=== PATIENT | female | born 1940 | race Caucasian/White ===

== ENCOUNTER → 2017-09-15 | Outpatient (CLI) | payer MEDICARE, OTHER ==
[~2017-09-15] MED LIST: ADVA500A INH; AZIT250T3 PO; BENA25TA3 PO; CALC1TAB PO; DILT1TAB8 PO; DIPH25CA PO; META0.52 PO; OMEP20TA93 PO; RANI150C PO; REST0.05 EACH EYE; SYSTSOL9 EACH EYE
--- NOTE | 2017-09-19 10:20 | RSPPFT ---
DATE OF PROCEDURE: 09/15/17 COMMENTS: VOLUMES DYNAMIC: FVC and FEV1 moderately reduced. STATIC: TLC and FRC mildly reduced; RV normal. FLOWS: FEV1% normal; FEF 25-75 moderately reduced. DIFFUSION: Moderately reduced. FLOW VOLUME LOOP: Restrictive configuration with terminal airflow obstruction. IMPRESSION: Combined moderate obstructive and mild restrictive ventilatory defect with a moderate reduction in diffusion and no improvement post-bronchodilator.
== END ==
LOC: HRSP 08:54
PROVIDERS: ATTEND Internal Medicine
DX: J45.909 Unspecified asthma, uncomplicated (principal)
CPT/HCPCS: 94060; 94620; 94726; 94729; 95012

== ENCOUNTER 2017-09-19 11:14 | Emergency (ER) | payer MEDICARE, OTHER ==
[~2017-09-19] VITALS: Ht 162.6 cm; Wt 80.0 kg
[~2017-09-19 11:14] MED LIST changes: -AZIT250T3 PO; -DIPH25CA PO
[2017-09-19 11:16] VITALS: BP 146/79; PULSE 101; RESP 19; TEMP 101.5; O2SAT 91
[2017-09-19 12:16] VITALS: BP 170/79; PULSE 93; RESP 24; TEMP 99.6; O2SAT 95
[2017-09-19] MEDS ORDERED: DIPH25CA PO (12:26)
[2017-09-19] MEDS ORDERED: SODIUM CHLORIDE 0.9% FLUSH 10 ML FLUSH IVF PRN (12:30)
[2017-09-19] MEDS ORDERED: ACETAMINOPHEN 500 MG CPLT PO ONE (12:30)
--- NOTE | 2017-09-19 12:30 | PD ---
HPI Chief Complaint: Respiratory Symptoms Time Seen by Provider: 12:13 Travel History International Travel<30 days: No Contact w/Intl Traveler<30days: No Traveled to known affect area: No History of Present Illness HPI 76-year-old female with PMH of hypertension, gastroparesis, asthma, A. fib on 2 L O2 at night at home presents to the ED for evaluation of 3 day history of productive cough, wheezing. She endorses chronic clear rhinorrhea. She denies fevers, chills, sore throat, ear pain, chest pain, palpitations, abdominal pain , nausea, changes in bowel habits, dysuria. She endorses one episode of posttussive emesis. She saw Dr. Manzo, pulmonology, 2 days ago and was prescribed prednisone at that time. She's been using the prednisone and albuterol treatments at home with no improvement of symptoms. She states baseline O2 sats are 94%. PFSH Past Medical History Asthma: Yes Atrial Fibrillation: Yes Autoimmune Disease: No Cancer: No Cardiac Catheterization: Yes Cardiovascular Problems: Yes (HX OF CORONARY ARTERY SPASMS ) Chemotherapy: No Chest Pain: Yes Diabetes: No Diminished Hearing: Yes (BILATERAL HEARING AIDS) Endocrine: No Gastrointestinal Disorders: Yes (GASTROPARESIS ) Hepatitis: No Hiatal Hernia: Yes Heparin Induced Thrombocytopen: No Hypertension: Yes Immune Disorder: No Implanted Vascular Access Dvce: No Kidney Stones: Yes Musculoskeletal: Yes Psychiatric: No Respiratory: Yes Radiation Therapy: No Sickle Cell Disease: No Thyroid Disease: No Menopausal: Yes : 0 Para: 0 Miscarriage: 0 : 0 Past Surgical History Abdominal Surgery: Yes (HIATAL HERNIA REPAIR) Cardiac Surgery: Yes ([facility] ONLY) Cholecystectomy: Yes Ear Surgery: No Endocrine Surgery: No Eye Surgery: No Genitourinary Surgery: No Gynecologic Surgery: No Neurologic Surgery: No Oral Surgery: No Pacemaker: No Thoracic Surgery: No Other Surgery: Yes Social History Alcohol Use: Yes (VERY RARELY) Tobacco Use: No Substance Use: No Allergies-Medications (Allergen,Severity, Reaction): Coded Allergies: Unable to Assess (Unverified Allergy, Severe, 06/17/17) ammonia (Unverified Allergy, Severe, 06/17/17) aspartame (Unverified Allergy, Severe, 06/17/17) aspirin (Unverified Allergy, Severe, 06/17/17) cefaclor (Unverified Allergy, Severe, 06/17/17) dexamethasone (Unverified Allergy, Severe, 06/17/17) formaldehyde (Unverified Allergy, Severe, 06/17/17) ibuprofen (Unverified Allergy, Severe, 06/17/17) metaproterenol (Unverified Allergy, Severe, 06/17/17) methylprednisolone (Unverified Allergy, Severe, 06/17/17) metoclopramide (Unverified Allergy, Severe, 06/17/17) mometasone furoate (Unverified Allergy, Severe, 06/17/17) nifedipine (Unverified Allergy, Severe, 06/17/17) piroxicam (Unverified Allergy, Severe, 06/17/17) Uncoded Allergies: CARPET SHAMPOO'S (Allergy, Mild, 06/30/06) CARPETS (Allergy, Mild, 06/30/06) CLEANING AGENTS (Allergy, Mild, 06/30/06) HOSPITALS AND MEDICAL OFFICES (Allergy, Mild, CAUSE ASTHMA FLARE UPS, ) STEFF-CHEMICALS (Allergy, Mild, 06/30/06) Reported Meds & Prescriptions Reported Meds & Active Scripts Active Azithromycin 250 Mg Tab 250 Mg PO DIRECTED Take 2 tabs (500 mg) on day 1 then 1 tab daily x 4 days. Restasis Opth (Cyclosporine Opth) 0.05% Emul 1 Drop EACH EYE BID Reported Diphenhydramine (Diphenhydramine HCl) 25 Mg Cap 25 Mg PO Q12H PRN Ranitidine (Ranitidine HCl) 150 Mg Cap 150 Mg PO BID Metamucil (Psyllium) 520 Mg Cap 1 Cap PO DAILY Calcium+D3 (Calcium Carbonate-Cholecalciferol) 600-800 Mg-Unit Tab 1 Tab PO DAILY Diltiazem ER 24 HR 360 Mg Cassie 360 Mg PO DAILY Omeprazole 20 Mg Tab 20 Mg PO DAILY Advair Diskus Inh (Fluticasone-Salmeterol Inh) 500-50 Mcg/Blist Aer 1 Puff INH BID Rinse mouth after use. Review of Systems Except as stated in HPI: all other systems reviewed are Neg Physical Exam Narrative GENERAL: Well-nourished, well-developed patient. SKIN: Focused skin assessment warm/dry. HEAD: Normocephalic. EYES: No scleral icterus. No injection or drainage. NECK: Supple, trachea midline. No JVD or lymphadenopathy. CARDIOVASCULAR: Regular rate and rhythm without murmurs, gallops, or rubs. RESPIRATORY: Breath sounds tight with wheezing bilaterally. Wet sounding cough. Rhonchi cleared by coughing. No accessory muscle use. GASTROINTESTINAL: Abdomen soft, non-tender, nondistended. MUSCULOSKELETAL: No cyanosis, or edema. BACK: Nontender without obvious deformity. No CVA tenderness. Data Data Last Documented VS Vital Signs Date Time Temp Pulse Resp B/P (MAP) Pulse Ox O2 Delivery O2 Flow Rate FiO2 09/19/17 16:14 87 18 134/89 (104) 98 09/19/17 14:35 Nasal Cannula 2.00 09/19/17 12:16 99.6 Orders Orders Complete Blood Count With Diff (09/19/17 12:23) Comprehensive Metabolic Panel (09/19/17 12:23) Urinalysis - C+S If Indicated (09/19/17 12:23) Blood Culture (09/19/17 12:23) Iv Access Insert/Monitor (09/19/17 12:23) Electrocardiogram (09/19/17 12:23) Ecg Monitoring (09/19/17 12:23) Oximetry (09/19/17 12:23) Oxygen Administration (09/19/17 12:23) Chest, Single Ap (09/19/17 12:23) Sodium Chloride 0.9% Flush (Ns Flush) (09/19/17 12:30) Albuterol-Ipratropium Neb (Duoneb Neb) (09/19/17 12:30) Acetaminophen (Tylenol) (09/19/17 12:30) B-Type Natriuretic Peptide (09/19/17 12:30) Lactic Acid (09/19/17 12:45) Ed Discharge Order (09/19/17 15:59) Labs Laboratory Tests Test 09/19/17 12:46 09/19/17 12:47 09/19/17 13:15 09/19/17 15:31 White Blood Count 14.7 TH/MM3 Red Blood Count 4.12 MIL/MM3 Hemoglobin 12.6 GM/DL Hematocrit 37.0 % Mean Corpuscular Volume 89.8 FL Mean Corpuscular Hemoglobin 30.5 PG Mean Corpuscular Hemoglobin Concent 34.0 % Red Cell Distribution Width 14.1 % Platelet Count 334 TH/MM3 Mean Platelet Volume 7.5 FL Neutrophils (%) (Auto) 87.5 % Lymphocytes (%) (Auto) 3.5 % Monocytes (%) (Auto) 7.8 % Eosinophils (%) (Auto) 0.9 % Basophils (%) (Auto) 0.3 % Neutrophils # (Auto) 12.9 TH/MM3 Lymphocytes # (Auto) 0.5 TH/MM3 Monocytes # (Auto) 1.1 TH/MM3 Eosinophils # (Auto) 0.1 TH/MM3 Basophils # (Auto) 0.0 TH/MM3 CBC Comment DIFF FINAL Differential Comment Blood Urea Nitrogen 18 MG/DL Creatinine 0.68 MG/DL Random Glucose 124 MG/DL Total Protein 6.6 GM/DL Albumin 3.1 GM/DL Calcium Level 8.2 MG/DL Alkaline Phosphatase 84 U/L Aspartate Amino Transf (AST/SGOT) 20 U/L Alanine Aminotransferase (ALT/SGPT) 25 U/L Total Bilirubin 0.7 MG/DL Sodium Level 137 MEQ/L Potassium Level 3.9 MEQ/L Chloride Level 105 MEQ/L Carbon Dioxide Level 22.8 MEQ/L Anion Gap 9 MEQ/L Estimat Glomerular Filtration Rate 85 ML/MIN Lactic Acid Level 0.9 mmol/L B-Type Natriuretic Peptide 61 PG/ML Urine Color YELLOW Urine Turbidity CLEAR Urine pH 5.5 Urine Specific [place] 1.021 Urine Protein TRACE mg/dL Urine Glucose (UA) NEG mg/dL Urine Ketones NEG mg/dL Urine Occult Blood TRACE Urine Nitrite NEG Urine Bilirubin NEG Urine Urobilinogen LESS THAN 2.0 MG/DL Urine Leukocyte Esterase TRACE Urine RBC 0-3 /hpf Urine WBC 3-5 /hpf Urine Squamous Epithelial Cells 6-8 /hpf Urine Bacteria OCC /hpf Urine Mucus MANY /lpf Microscopic Urinalysis Comment CULT NOT INDICATED MDM Medical Decision Making Medical Screen Exam Complete: Yes Emergency Medical Condition: Yes Differential Diagnosis Asthma exacerbation versus bronchitis versus pneumonia versus other Narrative Course 76-year-old female with PMH of hypertension, gastroparesis, asthma, A. fib on 2 L O2 at night at home presents to the ED for evaluation of 3 day history of productive cough, wheezing. She endorses chronic clear rhinorrhea. She denies fevers, chills, sore throat, ear pain, chest pain, palpitations, abdominal pain , nausea, changes in bowel habits, dysuria. She endorses one episode of posttussive emesis. She saw Dr. Manzo, pulmonology, 2 days ago and was prescribed prednisone at that time. O2 sats 91% on room air on arrival, improved to 96% on 2 L nasal cannula. Patient's febrile in triage but temp 99.6 on arrival here. Physical exam reveals a white female in no acute distress. Breath sounds tight and wheezing bilaterally. She has rhonchi bilaterally that are cleared by coughing. She has a wet sounding cough. No lower extremity edema noted. IV was established. Patient was administered 500 mg Tylenol by mouth and duo nebs 3. EKG rate 90, sinus rhythm. NE interval of 53, QRS 93, QTC 410. Normal axis. No ST changes. Reviewed by Dr. Renee CXR: No acute disease per radiology read. CBC: Leukocytosis 14.6, possibly elevated due to recent prednisone therapy. CMP: Mild hypocalcemia BNP: 61 Lactic acid: 0.9 UA: No culture indicated On recheck the patient reports improvement of her symptoms. She states that she does not want to be admitted to the hospital. I provided her with a Z-Rudolph. She states that she has a similar prescription at home that she did not have filled. She is instructed take the antibiotics as prescribed, continue with 40 mg prednisone daily, follow-up with Dr. Manzo. She indicated understanding of instructions and is agreeable care plan. She is stable and discharged home. Diagnosis Primary Impression: Asthma exacerbation Qualified Codes: J45.901 - Unspecified asthma with (acute) exacerbation Referrals: Oni Manzo MD Patient Instructions: General Instructions, Moderate and Severe Persistent Asthma (ED) Additional Instructions: Rest, hydrate. Take antibiotics as prescribed, even if her symptoms resolve. Continue with prednisone at home as prescribed by Dr. Manzo. Follow-up with Dr. Manzo this week. Return to the ED for worsening symptoms or any urgent or emergent medical condition. Med/Other Pt SpecificInfo: Prescription(s) given Scripts Azithromycin (Azithromycin) 250 Mg Tab 250 MG PO DIRECTED for Infection, #6 TAB 0 Refills Take 2 tabs (500 mg) on day 1 then 1 tab daily x 4 days. Prov: Judy Renee MD 09/19/17 Disposition: 01 DISCHARGE HOME Condition: Stable Nupur Murrell Sep 19, 2017 12:30
[2017-09-19] MEDS: RESP: ALBUTEROL 2.5 MG/IPRATROPIUM 0.5 MG NEB (SCH) INH (12:39)
[2017-09-19 12:40] VITALS: O2SAT 93
[2017-09-19 13:05] LABS: AUTOMATED NEUTROPHIL # 12.9 TH/MM3 (1.8-7.7); BASOPHIL % 0.3 % (0.0-2.0); EOSINOPHIL # 0.1 TH/MM3 (0-0.4); EOSINOPHIL % 0.9 % (0.0-4.0); HEMO FLAGS DIFF FINAL; LYMPH % 3.5 % (9.0-44.0); LYMPHOCYTE # 0.5 TH/MM3 (1.0-4.8); MEAN CELL VOLUME 89.8 FL (80.0-100.0); MEAN CORPUSCULAR HEMOGLOBIN 30.5 PG (27.0-34.0); MONO % 7.8 % (0.0-8.0); NEUT % 87.5 % (16.0-70.0); PLATELET COUNT 334 TH/MM3 (150-450); RED BLOOD COUNT 4.12 MIL/MM3 (4.00-5.30); RED CELL DISTRIBUTION WIDTH 14.1 % (11.6-17.2); WHITE BLOOD COUNT 14.7 TH/MM3 (4.0-11.0)
--- NOTE | 2017-09-19 13:20 | RADRPT ---
EXAM DATE/TIME: 09/19/2017 13:06 [facility] COMPARISON: CHEST PA & LAT, December 06, 2015, 9:32. CHEST SINGLE AP, October 22, 2015, 3:51. INDICATIONS : Short of breath patient states she has asthma. MEDICAL HISTORY : None. SURGICAL HISTORY : None. ENCOUNTER: Initial ACUITY: 1 day PAIN SCORE: 0/10 LOCATION: Bilateral chest FINDINGS: A single view of the chest demonstrates the lungs to be symmetrically aerated without evidence of mas s, infiltrate or effusion. There is mild scarring. The cardiomediastinal contours are unremarkable. Osseous structures are intact. CONCLUSION: No acute disease. Mohamud Zhang MD on September 19, 2017 at 13:17 Board Certified Radiologist. This report was verified electronically.
[2017-09-19 13:33] LABS: ALKALINE PHOSPHATASE 84 U/L (45-117); TOTAL BILIRUBIN ADULT 0.7 MG/DL (0.2-1.0)
[2017-09-19 13:37] LABS: ALT (GPT) 25 U/L (10-53); ANION GAP 9 MEQ/L (5-15); BICARBONATE 22.8 MEQ/L (21.0-32.0); BLOOD UREA NITROGEN 18 MG/DL (7-18); CHLORIDE 105 MEQ/L (98-107); GLOMERULAR FILTRATION RATE 85 ML/MIN (>89); SODIUM (NA) 137 MEQ/L (136-145)
[2017-09-19 13:39] LABS: AST (GOT) 20 U/L (15-37); POTASSIUM 3.9 MEQ/L (3.5-5.1)
[2017-09-19 14:35] VITALS: RESP 18; O2SAT 98
[2017-09-19] MEDS ORDERED: AZIT250T3 PO (15:27)
[2017-09-19 15:57] LABS: BLOOD, URINE TRACE (NEG); GLUCOSE,URINE NEG (NEG); KETONE, URINE NEG (NEG); NITRITE,URINE NEG (NEG); PH, URINE 5.5 (5.0-8.5); URINE COLOR YELLOW (YELLW/STRAW)
[2017-09-19 16:00] LABS: BACTERIA, URINE OCC /hpf; RBC, URINE 0-3 /hpf (0-3)
[2017-09-19 16:01] LABS: COMMENT (UR) CULT NOT INDICATED; CULTURE IF INDICATED CULT NOT INDICATED; MUCUS URINE MANY /lpf (OCC)
[2017-09-19 16:14] VITALS: BP 134/89
--- NOTE | 2017-09-20 09:22 | EKG ---
Date Performed: 09/19/2017 Time Performed: 14:51:11 PTAGE: 76 years EKG: Sinus rhythm POSSIBLE LEFT ATRIAL ENLARGEMENT Compared to prior tracing no significant change BORDERLINE ECG PREVIOUS TRACING : 12/06/2015 09.18 DOCTOR: Santos Rivera Interpretating Date/Time 09/20/2017 09:21:32
== END 2017-09-19 16:27 | disposition home or self-care (01) ==
LOC: NEPC 11:14
DX: I48.91 Unspecified atrial fibrillation (principal); J45.901 Unspecified asthma with (acute) exacerbation
CPT/HCPCS: 71010; 80053; 81001; 83605; 83880; 85025; 87040; 93005; 94640; 94664; 99285

== ENCOUNTER 2018-08-10 13:00 | Observation (INO) ==
[2018-08-10 14:39] LABS: Baso % (Auto) 0.3 % (0.0-2.0); Eos % (Auto) 0.2 % (0.0-4.0); Hematocrit 41.4 % (35.0-46.0); Hemoglobin 13.9 gm/dL (11.6-15.3); Lymph # (Auto) 1.1 th/mm3 (1.0-4.8); Lymph % (Auto) 9.5 % (9.0-44.0); Mean Corpuscular HGB Conc 33.7 % (32.0-36.0); Mean Corpuscular Hemoglobin 30.8 pg (27.0-34.0); Mean Corpuscular Volume 91.5 fL (80.0-100.0); Mean Platelet Volume 8.5 fL (7.0-11.0); Mono # (Auto) 0.4 th/mm3 (0.0-0.9); Mono % (Auto) 3.7 % (0.0-8.0); Neut # (Auto) 10.2 th/mm3 (1.8-7.7); Neut % (Auto) 86.3 % (16.0-70.0); Platelet Count 410 th/mm3 (150-450); Red Blood Count 4.52 mil/mm3 (4.00-5.30); Red Cell Distribution Width 14.2 % (11.6-17.2); White Blood Count 11.8 th/mm3 (4.0-11.0)
--- NOTE | 2018-08-10 14:45 | XR ---
EXAM DATE: 08/10/2018 2:00 PM EDT AGE/SEX: 77 years / Female INDICATIONS: . Cough. CLINICAL DATA: This is the patient's initial encounter. Patient reports that signs and symptoms have been present for 1 week and indicates a pain score of 0/10. MEDICAL/SURGICAL HISTORY: None. None. COMPARISON: [facility] [place]ST SINGLE AP, 09/19/2017. . FINDINGS: PA and lateral views of the chest demonstrate hyperinflation and lingular densities. Cardiomegaly. Bl unting of both costophrenic angles. Kyphosis and degenerative changes thoracic spine. Osseous structu res are intact. CONCLUSION: Lingular infiltrate. Treatment and follow-up to resolution. Electronically signed by: Hardik Herman MD 08/10/2018 2:44 PM EDT
--- NOTE | 2018-08-10 14:46 | ED ---
HPI General Chief complaint: Respiratory Symptoms Stated complaint: respiratory Time Seen by Provider: 08/10/18 13:33 History of Present Illness HPI narrative: This is a 77-year-old female with a history of hypertension, GERD , asthma, who presents today with complaints of shortness of breath and low oxygen saturation. Patient states that she is normally with oxygen saturations in the high 90s. She states today that she noted they were in the low 90s. She reports cold and cough symptoms for several days now. She denies any fevers , chills. She does report that her cough is productive however she keeps swallowing the phlegm. She is been on prednisone as well as a Z-Rudolph with no improvement in symptoms. There are no other complaints at the time of my examination. Related Data Home Medications Medication Instructions Recorded Confirmed carisoprodol [Soma] 350 mg PO QID PRN 08/10/18 08/10/18 diltiazem HCl 360 mg PO DAILY 08/10/18 08/11/18 fluticasone-salmeterol [Advair 1 inh INHALATION BID 08/10/18 08/10/18 Diskus] omeprazole 20 mg PO DAILY 08/10/18 08/10/18 ranitidine HCl 150 mg PO BID 08/10/18 08/10/18 Previous Rx's Medication Instructions Recorded guaifenesin [Mucinex] 600 mg PO BID #10 tab 08/12/18 hydrocortisone [Cortef] 10 mg PO BID #10 tab 08/12/18 levofloxacin 750 mg PO DAILY #5 tab 08/12/18 Allergies Allergy/AdvReac Type Severity Reaction Status Date / Time ammonia Allergy Severe Shortness Verified 08/10/18 18:38 of Breath aspartame Allergy Severe Shortness Verified 08/10/18 18:38 of Breath aspirin Allergy Severe Shortness Verified 08/10/18 18:38 of Breath cefaclor Allergy Severe Blister Verified 08/10/18 18:38 dexamethasone Allergy Severe Shortness Verified 08/10/18 18:38 of Breath formaldehyde Allergy Severe Shortness Verified 08/10/18 18:38 of Breath ibuprofen Allergy Severe Shortness Verified 08/10/18 18:38 of Breath metaproterenol Allergy Severe Shortness Verified 08/10/18 18:38 of Breath methylprednisolone Allergy Severe Shortness Verified 08/10/18 18:38 of Breath metoclopramide Allergy Severe Shortness Verified 08/10/18 18:38 of Breath mometasone furoate Allergy Severe Shortness Verified 08/10/18 18:38 of Breath nifedipine Allergy Severe Shortness Verified 08/10/18 18:38 of Breath piroxicam Allergy Severe Shortness Verified 08/10/18 18:38 of Breath Unable to Assess Allergy Severe Shortness Verified 08/10/18 18:38 of Breath CARPET SHAMPOO'S Allergy Mild Shortness Uncoded 08/10/18 18:38 of Breath CARPETS Allergy Mild Shortness Uncoded 08/10/18 18:38 of Breath CLEANING AGENTS Allergy Mild Shortness Uncoded 08/10/18 18:38 of Breath HOSPITALS AND MEDICAL OFFICES Allergy Mild CAUSE Uncoded 06/30/06 05:39 ASTHMA FLARE UPS STEFF-CHEMICALS Allergy Mild Shortness Uncoded 08/10/18 18:38 of Breath Review of Systems ROS: all other systems reviewed are negative Constitutional Denies chills and Denies fever(s) Eyes Reports system reviewed and no additional complaints, except [facility] Reports system reviewed and no additional complaints, except as docu Cardiovascular Denies chest pain, Denies diaphoresis and Reports other (No chest pressure.) Respiratory Denies chest congestion, Denies cough, Denies pain on inspiration and Reports dyspnea Gastrointestinal Denies abdominal pain, Reports nausea and Denies vomiting Genitourinary Reports system reviewed and no additional complaints, except as docu Musculoskeletal Reports system reviewed and no additional complaints, except as docu Neurologic Reports dizziness, Denies headache(s) and Denies weakness PMFSH Family History Family History Other A-fib Parkinsons Social History Social History Substance History: No History of Abuse Second Hand Smoke Exposure: Yes Smoking Status: Never smoker How Often Do You Have a Drink Containing Alcohol: Monthly or less Recent Travel in [facility] within the Last 8 Weeks: No Recent Out of Country Travel within the Last 8 Weeks: No Immunization History Tetanus Immunization: >5 Years Exam Narrative Exam Narrative: GENERAL: Well-developed well-nourished female in moderate respiratory discomfort. SKIN: Focused skin assessment warm/dry. HEAD: Atraumatic. Normocephalic. EYES: No scleral icterus. No injection or drainage. ENT: No nasal bleeding or discharge. Mucous membranes pink and moist. NECK: Trachea midline. No JVD. Supple. CARDIOVASCULAR: Regular rate and rhythm. No murmur appreciated. RESPIRATORY: Tachypneic. Diffuse expiratory wheezes bilaterally. No obvious rales. GASTROINTESTINAL: Abdomen soft, non-tender, nondistended. Hepatic and splenic margins not palpable. MUSCULOSKELETAL: No obvious deformities. No clubbing. No cyanosis. No edema. NEUROLOGICAL: Awake and alert. No obvious cranial nerve deficits. Motor grossly within normal limits. Normal speech. PSYCHIATRIC: Appropriate mood and affect; insight and judgment normal. Course Initial Documented Vital Signs Temperature 98.2 F 08/10/18 13:17 Pulse Rate 87 08/10/18 13:17 Respiratory Rate 22 08/10/18 13:17 Blood Pressure 204/91 H 08/10/18 13:17 Pulse Oximetry 90 L 08/10/18 13:17 Last Documented Vital Signs Temperature 98.8 F 08/12/18 12:00 Pulse Rate 89 08/12/18 12:25 Respiratory Rate 20 08/12/18 12:25 Blood Pressure 164/90 H 08/12/18 12:14 Pulse Oximetry 91 L 08/12/18 12:00 Medical Decision Making [facility] Narrative Medical decision making narrative: 77-year-old female with history of asthma, presents today with complaints of shortness of breath. Patient also states that she has a cough. Her oxygen saturations were noted to be in the low 90s. Chest x-ray shows a left lingula pneumonia. She has multiple drug allergies. She was started on Levaquin and aztreonam for the pneumonia. Cultures have been sent. Patient was admitted to the medical service. Medical Screen Exam Complete: Yes Emergency Medical Condition: Yes Differential Diagnosis Differential Diagnosis: Pneumonia versus asthma exacerbation versus metabolic derangement Lab Data Result diagrams: 08/10/18 14:10 08/10/18 14:10 Lab Results 08/10/18 08/10/18 08/10/18 Range/Units 14:10 14:10 17:45 WBC 11.8 H (4.0-11.0) th/mm3 RBC 4.52 (4.00-5.30) mil/mm3 Hgb 13.9 (11.6-15.3) gm/dL Hct 41.4 (35.0-46.0) % MCV 91.5 (80.0-100.0) fL MCH 30.8 (27.0-34.0) pg MCHC 33.7 (32.0-36.0) % RDW 14.2 (11.6-17.2) % Plt Count 410 (150-450) th/mm3 MPV 8.5 (7.0-11.0) fL Prelim Diff (Auto) Slide review pending Neut % (Auto) 86.3 H (16.0-70.0) % Lymph % (Auto) 9.5 (9.0-44.0) % Stark % (Auto) 3.7 (0.0-8.0) % Eos % (Auto) 0.2 (0.0-4.0) % Baso % (Auto) 0.3 (0.0-2.0) % Neut # (Auto) 10.2 H (1.8-7.7) th/mm3 Lymph # (Auto) 1.1 (1.0-4.8) th/mm3 Stark # (Auto) 0.4 (0.0-0.9) th/mm3 Eos # (Auto) 0.0 (0.0-0.4) th/mm3 Baso # (Auto) 0.0 (0.0-0.2) th/mm3 WBC Differential Manual diff final Seg Neuts % (Manual) 86 H (16-70) % Band Neuts % (Manual) 2 (0-6) % Lymphocytes % (Manual) 4 L (9-44) % Monocytes % (Manual) 6 (0-8) % Metamyelocytes % (Man) 2 H (0-1) % Abs Neuts (Manual) 10.6 H (1.8-7.7) th/mm3 Differential Comment . Platelet Estimate Normal (Normal) Platelet Morphology Normal (Normal) Sodium 143 (136-145) meq/L Potassium 4.0 (3.5-5.1) meq/L Chloride 109 H (98-107) meq/L Carbon Dioxide 21.7 (21.0-32.0) meq/L Anion Gap 12 (5-15) meq/L BUN 23 H (7-18) mg/dL Creatinine 0.96 (0.50-1.00) mg/dL Estimated GFR 57 L (>89) mL/min Random Glucose 153 H (74-106) mg/dL Calcium 8.4 L (8.5-10.1) mg/dL Total Bilirubin 0.5 (0.2-1.0) mg/dL AST 38 H (15-37) U/L ALT 42 (10-53) U/L Alkaline Phosphatase 78 (45-117) U/L Total Creatine Kinase 249 H (26-192) U/L CK-MB (CK-2) 6.1 H (0.5-3.6) ng/mL CK-MB (CK-2) % 2.4 (0.0-4.0) % Troponin I Less than 0.02 L (0.02-0.05) ng/mL Total Protein 6.8 (6.4-8.2) g/dL Albumin 3.5 (3.4-5.0) g/dL Procalcitonin 0.09 H (0.00-0.08) ng/mL Urine Color (Yellw/Straw) Urine Clarity (Clear) Urine pH (5.0-8.5) Ur Specific [place] (1.002-1.035) Urine Protein (Neg-Trace) mg/dL Urine Glucose (UA) (Negative) mg/dL Urine Ketones (Negative) mg/dL Urine Occult Blood (Negative) Urine Nitrate (Negative) Urine Bilirubin (Negative) Urine Urobilinogen (Less than 2) mg/dL Ur Leukocyte Esterase (Negative) Urine RBC (0-3) /hpf Urine WBC (0-5) /hpf Ur Squamous Epith Cells (0-5) /hpf Calcium Oxalate Crystal (None) /hpf Urine Mucus (Occasional) /lpf Micro UA Comment Ur Microscopic Review Urine Culture Comments 08/11/18 Range/Units 07:00 WBC (4.0-11.0) th/mm3 RBC (4.00-5.30) mil/mm3 Hgb (11.6-15.3) gm/dL Hct (35.0-46.0) % MCV (80.0-100.0) fL MCH (27.0-34.0) pg MCHC (32.0-36.0) % RDW (11.6-17.2) % Plt Count (150-450) th/mm3 MPV (7.0-11.0) fL Prelim Diff (Auto) Neut % (Auto) (16.0-70.0) % Lymph % (Auto) (9.0-44.0) % Stark % (Auto) (0.0-8.0) % Eos % (Auto) (0.0-4.0) % Baso % (Auto) (0.0-2.0) % Neut # (Auto) (1.8-7.7) th/mm3 Lymph # (Auto) (1.0-4.8) th/mm3 Stark # (Auto) (0.0-0.9) th/mm3 Eos # (Auto) (0.0-0.4) th/mm3 Baso # (Auto) (0.0-0.2) th/mm3 WBC Differential Seg Neuts % (Manual) (16-70) % Band Neuts % (Manual) (0-6) % Lymphocytes % (Manual) (9-44) % Monocytes % (Manual) (0-8) % Metamyelocytes % (Man) (0-1) % Abs Neuts (Manual) (1.8-7.7) th/mm3 Differential Comment Platelet Estimate (Normal) Platelet Morphology (Normal) Sodium (136-145) meq/L Potassium (3.5-5.1) meq/L Chloride (98-107) meq/L Carbon Dioxide (21.0-32.0) meq/L Anion Gap (5-15) meq/L BUN (7-18) mg/dL Creatinine (0.50-1.00) mg/dL Estimated GFR (>89) mL/min Random Glucose (74-106) mg/dL Calcium (8.5-10.1) mg/dL Total Bilirubin (0.2-1.0) mg/dL AST (15-37) U/L ALT (10-53) U/L Alkaline Phosphatase (45-117) U/L Total Creatine Kinase (26-192) U/L CK-MB (CK-2) (0.5-3.6) ng/mL CK-MB (CK-2) % (0.0-4.0) % Troponin I (0.02-0.05) ng/mL Total Protein (6.4-8.2) g/dL Albumin (3.4-5.0) g/dL Procalcitonin (0.00-0.08) ng/mL Urine Color Yellow (Yellw/Straw) Urine Clarity Clear (Clear) Urine pH 5.0 (5.0-8.5) Ur Specific [place] 1.020 (1.002-1.035) Urine Protein Negative (Neg-Trace) mg/dL Urine Glucose (UA) Negative (Negative) mg/dL Urine Ketones Negative (Negative) mg/dL Urine Occult Blood Negative (Negative) Urine Nitrate Negative (Negative) Urine Bilirubin Negative (Negative) Urine Urobilinogen Less than 2 (Less than 2) mg/dL Ur Leukocyte Esterase Small H (Negative) Urine RBC 3 (0-3) /hpf Urine WBC 16 H (0-5) /hpf Ur Squamous Epith Cells <1 (0-5) /hpf Calcium Oxalate Crystal Few H (None) /hpf Urine Mucus Few H (Occasional) /lpf Micro UA Comment Culture indicated Ur Microscopic Review Not Reportable Urine Culture Comments Culture indicated Imaging Data Radiologist's impression: Chest X-Ray 08/10/18 14:00 CONCLUSION: Lingular infiltrate. Treatment and follow-up to resolution. Chest X-Ray 08/11/18 07:00 CONCLUSION: Stable examination compared to the prior study with an infiltrate in the lingula segment of the left lower lung. No new or significant changes. Discharge Plan Discharge Disposition Patient Disposition: 01 Discharge Home Discharge Condition Condition: Stable Discharge Order Discharge Orders: Discharge Order (Routine); Ordered 08/12/18 Ordered By: Cadence Franks Discharge Details Diagnosis: Pneumonia, community acquired, Asthma, SOB (shortness of breath), Hypoxia Physicians Team ED Provider: Herminio Lyon Primary Care Provider: Krystina Mendoza Attending Provider: Ami Acevedo Discharge Interventions Interventions: ED Discharge Assessment Last Done: 08/11/18 02:48 Status ED Status: Left Department Discharge Information Discharge Date/Time: 08/11/18 02:49
[2018-08-10 15:10] LABS: Alanine Aminotransferase 42 U/L (10-53); Albumin 3.5 g/dL (3.4-5.0); Alkaline Phosphatase 78 U/L (45-117); Anion Gap 12 meq/L (5-15); Aspartate Aminotransferase 38 U/L (15-37); Blood Urea Nitrogen 23 mg/dL (7-18); Calcium 8.4 mg/dL (8.5-10.1); Carbon Dioxide 21.7 meq/L (21.0-32.0); Chloride 109 meq/L (98-107); Creatine Kinase 249 U/L (26-192); Glomerular Filtration Rate 57 mL/min (>89); Glucose,Random 153 mg/dL (74-106); Sodium 143 meq/L (136-145); Total Protein 6.8 g/dL (6.4-8.2)
[2018-08-10 15:11] LABS: Lymphocytes 4 % (9-44); Metamyelocytes 2 % (0-1); Monocytes 6 % (0-8)
[2018-08-10 15:14] LABS: Platelet Estimate Normal (Normal); Platelet Morphology Normal (Normal)
[2018-08-10 15:22] LABS: CKMB Percent 2.4 % (0.0-4.0); Creatine Kinase MB 6.1 ng/mL (0.5-3.6)
--- NOTE | 2018-08-10 17:45 | P.HP ---
History of Present Illness Primary Care Physician: Krystina Mendoza MD History of Present Illness: 77-year-old white female being admitted for shortness of breath. Patient was in her usual state of health until 1 week ago when she began developing a cough. The cough progressed and she started developing worsening shortness of breath with wheezing. Now she says she has to rest as she ambulates from room to room to catch her breath. Denies having any nausea vomiting. Denies having any angle chest pain. Reports having a wet cough but does not actually have any productive sputum. Says 1 day after her cough she started taking prednisone 20 mg as well as starting a Z-Rudolph and albuterol nebulizations, then increased her dosing to 20 mg twice daily afterwards since her symptoms did not improve. This morning she had actually taken 60 mg since her symptoms worsened. Patient denies having any pleuritic chest pain. The emergency department she is noted to be saturating about 90% on room air. Her blood pressure was in the 200s systolic. Chest x-ray was being read as having a lingular infiltrate but upon my independent review I see no angle isolated consolidation. Patient was given a dose of Levaquin and aztreonam. Blood cx's were obtained in the ED. Patient reports being compliant with her asthma medications including her Advair. Says she has not had to take her nebulizers in a while. Says that she lives with her who smokes indoors. Review of Systems All other systems reviewed negative except as stated in HPI PMFSH - History History Provided By: Patient - Medical History Medical History: Medical History (Last Reviewed 08/10/18 @ 17:42 by Franco Royal MD) Afib Kidney stone Asthma - Surgical History Surgical History: Surgical History (Last Reviewed 08/10/18 @ 17:42 by Franco Royal MD) History of cholecystectomy History of repair of anterior cruciate ligament of left knee - Family History Family History: Family History (Last Updated 08/10/18 @ 17:42 by Franco Royal MD) Other A-fib Parkinsons - Tobacco History Second Hand Smoke Exposure: Yes Smoking Status: Never smoker - Alcohol History How Often Do You Have a Drink Containing Alcohol: Monthly or less - Substance Use History Substance History: No History of Abuse - Travel History Recent Travel in the [place] Within the Last 8 Weeks: No Recent Travel Out of the Country Within the Last 8 Weeks: No - Immunization History Tetanus Immunization: >5 Years Medications and Allergies Active Medications: Active Medications Acetylcysteine (Mucomyst 10% Neb) 2 ml NEB Q4HR NEB PRN PRN Reason: mucous plugging Albuterol (Albuterol Concentrated Neb) 2.5 mg NEB Q2HR NEB PRN PRN Reason: SHORTNESS OF BREATH Albuterol (Duoneb Neb (Rachele)) 1 ampul NEB Q6HR WHILE AWAKE NEB RACHELE Aztreonam 2 gm/ Sodium (Chloride) 100 mls @ 200 mls/hr IV.SIG Q8H RACHELE Levofloxacin/Dextrose (Levaquin 750 Mg Premix Inj) 150 mls @ 100 mls/hr IV.SIG Q24H RACHELE Last Admin: 08/10/18 17:30 Dose: 100 mls/hr Methylprednisolone Sodium Succinate (Solumedrol Inj) 125 mg IV.PUSH Q8HR RACHELE Non-Formulary Medication (Fluticasone-Salmeterol [Advair Diskus]) 1 inh INHALATION BID RACHELE Non-Formulary Medication (Omeprazole [Omeprazole]) 20 mg PO DAILY RACHELE Non-Formulary Medication (Ranitidine Hcl [Ranitidine Hcl]) 150 mg PO BID RACHELE Non-Formulary Medication (Diltiazem Hcl [Diltiazem Hcl]) 240 mg PO DAILY RACHELE Sodium Chloride (Ns Flush) 2 ml IV.FLUSH BID RACHELE Sodium Chloride (Ns Flush) 2 ml IV.FLUSH PRN PRN PRN Reason: FLUSH AFTER USING IV ACCESS Allergies Allergy/AdvReac Type Severity Reaction Status Date / Time ammonia Allergy Severe Shortness Verified 08/10/18 18:38 of Breath aspartame Allergy Severe Shortness Verified 08/10/18 18:38 of Breath aspirin Allergy Severe Shortness Verified 08/10/18 18:38 of Breath cefaclor Allergy Severe Blister Verified 08/10/18 18:38 dexamethasone Allergy Severe Shortness Verified 08/10/18 18:38 of Breath formaldehyde Allergy Severe Shortness Verified 08/10/18 18:38 of Breath ibuprofen Allergy Severe Shortness Verified 08/10/18 18:38 of Breath metaproterenol Allergy Severe Shortness Verified 08/10/18 18:38 of Breath methylprednisolone Allergy Severe Shortness Verified 08/10/18 18:38 of Breath metoclopramide Allergy Severe Shortness Verified 08/10/18 18:38 of Breath mometasone furoate Allergy Severe Shortness Verified 08/10/18 18:38 of Breath nifedipine Allergy Severe Shortness Verified 08/10/18 18:38 of Breath piroxicam Allergy Severe Shortness Verified 08/10/18 18:38 of Breath Unable to Assess Allergy Severe Shortness Verified 08/10/18 18:38 of Breath CARPET SHAMPOO'S Allergy Mild Shortness Uncoded 08/10/18 18:38 of Breath CARPETS Allergy Mild Shortness Uncoded 08/10/18 18:38 of Breath CLEANING AGENTS Allergy Mild Shortness Uncoded 08/10/18 18:38 of Breath [facility] Allergy Mild CAUSE Uncoded 06/30/06 05:39 ASTHMA FLARE [employer] STE[employer]MICALS Allergy Mild Shortness Uncoded 08/10/18 18:38 of Breath Home Medications Medication Instructions Recorded Confirmed Type carisoprodol [Soma] 350 mg PO QID PRN 08/10/18 08/10/18 History diltiazem HCl 360 mg PO DAILY 08/10/18 08/11/18 History fluticasone-salmeterol [Advair 1 inh INHALATION BID 08/10/18 08/10/18 History Diskus] omeprazole 20 mg PO DAILY 08/10/18 08/10/18 History ranitidine HCl 150 mg PO BID 08/10/18 08/10/18 History Exam Vital signs: Vital Signs 08/10/18 13:17 08/10/18 13:48 08/10/18 14:02 Temperature 98.2 F Pulse Rate 87 74 Respiratory Rate 22 20 Blood Pressure 204/91 H 193/87 H Pulse Oximetry 90 L 92 L 93 L 08/10/18 15:20 08/10/18 15:50 Temperature Pulse Rate 76 74 Respiratory Rate 22 16 Blood Pressure Pulse Oximetry 91 L Intake & Output 08/09/18 08/10/18 08/10/18 18:59 06:59 18:59 Weight 82.554 kg Narrative: VS: afebrile GENERAL: Elderly female, mild respiratory distress SKIN: Warm and dry. EYES: No scleral icterus. No injection or drainage. ENT: No nasal bleeding or discharge. Mucous membranes pink and moist. CARDIOVASCULAR: Regular rate and rhythm. no murmurs RESPIRATORY: Profound expiratory rhonchi, mildly labored breathing, diminished breath sounds in the bases. GASTROINTESTINAL: Abdomen soft, non-tender, nondistended. Extremities: No clubbing, cyanosis, or edema. No obvious deformities. MUSCULOSKELETAL: adequate muscle bulk and tone for age and habitus NEUROLOGICAL: Awake and alert. No obvious cranial nerve deficits. No facial droop nor slurred speech noted. PSYCHIATRIC: Appropriate mood and affect; insight and judgment normal. Results - Labs CBC & Chem 7: 08/10/18 14:10 08/10/18 14:10 Labs: Laboratory Results - last 24 hr 08/10/18 08/10/18 14:10 14:10 WBC 11.8 H RBC 4.52 Hgb 13.9 Hct 41.4 MCV 91.5 MCH 30.8 MCHC 33.7 RDW 14.2 Plt Count 410 MPV 8.5 Prelim Diff (Auto) Slide review pending Neut % (Auto) 86.3 H Lymph % (Auto) 9.5 [place] % (Auto) 3.7 Eos % (Auto) 0.2 Baso % (Auto) 0.3 Neut # (Auto) 10.2 H Lymph # (Auto) 1.1 [place] # (Auto) 0.4 Eos # (Auto) 0.0 Baso # (Auto) 0.0 WBC Differential Manual diff final Seg Neuts % (Manual) 86 H Band Neuts % (Manual) 2 Lymphocytes % (Manual) 4 L Monocytes % (Manual) 6 Metamyelocytes % (Man) 2 H Abs Neuts (Manual) 10.6 H Differential Comment . Platelet Estimate Normal Platelet Morphology Normal Sodium 143 Potassium 4.0 Chloride 109 H Carbon Dioxide 21.7 Anion Gap 12 BUN 23 H Creatinine 0.96 Estimated GFR 57 L Random Glucose 153 H Calcium 8.4 L Total Bilirubin 0.5 AST 38 H ALT 42 Alkaline Phosphatase 78 Total Creatine Kinase 249 H CK-MB (CK-2) 6.1 H CK-MB (CK-2) % 2.4 Troponin I Less than 0.02 L Total Protein 6.8 Albumin 3.5 - Imaging Impressions Chest X-Ray 08/10/18 14:00 CONCLUSION: Lingular infiltrate. Treatment and follow-up to resolution. Caprini VTE Risk Assessment Caprini VTE Risk Assessment: Moderate/High Risk (score >= 2) Caprini Risk Assessment Model: Point Value = 1 Point Value = 2 Point Value = 3 Point Value = 5 Age 41-60 Minor surgery BMI > 25 kg/m2 Swollen legs Varicose veins or History of unexplained or recurrent spontaneous Oral contraceptives or hormone replacement Sepsis (< 1 month) Serious lung disease, including pneumonia (< 1 month) Abnormal pulmonary function Acute myocardial infarction Congestive heart failure (< 1 month) History of inflammatory bowel disease Medical patient at bed rest Age 61-74 Arthroscopic surgery Major open surgery (> 45 min) Laparoscopic surgery (> 45 min) Malignancy Confined to bed (> 72 hours) Immobilizing plaster cast Central venous access Age >= 75 History of VTE Family history of VTE Factor V Leiden Prothrombin [id number] Lupus anticoagulant Anticardiolipin antibodies Elevated serum homocysteine Heparin-induced thrombocytopenia Other congenital or acquired thrombophilia Stroke (< 1 month) Elective arthroplasty Hip, pelvis, or leg fracture Acute spinal cord injury (< 1 month) Prophylaxis Regimen: Total Risk Factor Score Risk Level Prophylaxis Regimen 0-1 Low Early ambulation 2 Moderate Order ONE of the following: *Sequential Compression Device (SCD) *Heparin 5000 units SQ BID 3-4 Higher Order ONE of the following medications: *Heparin 5000 units SQ TID *Enoxaparin/Lovenox 40 mg SQ daily (WT < 150 kg, CrCl > 30 mL/min) *Enoxaparin/Lovenox 30 mg SQ daily (WT < 150 kg, CrCl > 10-29 mL/min) *Enoxaparin/Lovenox 30 mg SQ BID (WT < 150 kg, CrCl > 30 mL/min) AND/OR *Sequential Compression Device (SCD) 5 or more Highest Order ONE of the following medications: *Heparin 5000 units SQ TID (Preferred with Epidurals) *Enoxaparin/Lovenox 40 mg SQ daily (WT < 150 kg, CrCl > 30 mL/min) *Enoxaparin/Lovenox 30 mg SQ daily (WT < 150 kg, CrCl > 10-29 mL/min) *Enoxaparin/Lovenox 30 mg SQ BID (WT < 150 kg, CrCl > 30 mL/min) AND *Sequential Compression Device (SCD) Assessment and Plan - Plan 77-year-old white female being admitted for shortness of breath, asthma exacerbation, possible pneumonia Shortness of breath Asthma exacerbation with possible pneumonia although it is not impressive on chest x-ray High-dose Solu-Medrol, start weaning tomorrow Continue Levaquin and aztreonam for now, will obtain pro calcitonin and if negative will discontinue antibiotics We will obtain a PA and lateral chest x-ray in a.m. -Scheduled duo nebs every 4 hours, albuterol as needed every 2 hours -If respiratory distress not improved by tomorrow morning, then proceed with CTA A. fib Continue home Cardizem - needs anticoagulation upon discharge due to elevated chadsvasc lovenox Addendum: Patient notified nurse who notified me that she cannot take Solu- Medrol because it makes her "asthma worse." She is willing to take only Solu- Cortef while in the hospital. We will switch from Solu-Medrol to hydrocortisone 250 mg every 6 hours
[2018-08-10] MEDS ORDERED: MethylPREDNISolone Sod Succinate Inj 125 MG/2 ML Vial IV.PUSH SCH (18:00)
[2018-08-10] MEDS: Aztreonam Inj 2 GM in Sodium Chloride 0.9% Inj 100 ML IV.SIG SCH (18:45)
[2018-08-10] MEDS ORDERED: Budesonide-Formoterol 160/4.5 MCG 6 GM Inhaler INH SCH (21:00)
[2018-08-10] MEDS: Famotidine 20 MG Tablet PO SCH (21:30)
[2018-08-10] MEDS: RESP: Albuterol Concentrated 2.5 MG/0.5 ML Neb NEB PRN (23:12)
[2018-08-11] MEDS: Aztreonam Inj 2 GM in Sodium Chloride 0.9% Inj 100 ML IV.SIG SCH ×3 (01:11→17:31)
[2018-08-11] MEDS: RESP: Albuterol Concentrated 2.5 MG/0.5 ML Neb NEB PRN (03:30)
[2018-08-11 07:59] LABS: Bilirubin,Urine Negative (Negative); Calcium Oxalate Crystals,Urine Few /hpf; Clarity,Urine Clear (Clear); Color,Urine Yellow (Yellw/Straw); Glucose,Urine (UA) Negative (Negative); Leukocyte Esterase,Urine Small (Negative); Mucus,Urine Few /lpf (Occasional); Nitrite,Urine Negative (Negative); Squamous Epithelial Cell,Urine <1 /hpf (0-5)
--- NOTE | 2018-08-11 08:52 | XR ---
EXAM DATE: 08/11/2018 7:00 AM EDT AGE/SEX: 77 years / Female INDICATIONS: . Evaluate for pneumonia. CLINICAL DATA: This is the patient's initial encounter. Patient reports that signs and symptoms have been present for 2 days and indicates a pain score of 0/10. MEDICAL/SURGICAL HISTORY: Hypertension. None. COMPARISON: [facility] [place], CHEST 2V PA&LAT, 08/10/2018. . FINDINGS: Today's exam is compared to prior study. There continues to be an infiltrate in the lingula segment o f the left lower lung. Otherwise the rest the lung gregory are grossly clear. Some very mild atelectas is in the right lung base. No definite new infiltrates are seen. The heart size is enlarged but stabl e. There is no evidence of pneumothorax. There is no evidence of pulmonary edema. The bony structures are intact and stable. CONCLUSION: Stable examination compared to the prior study with an infiltrate in the lingula segment of the left lower lung. No new or significant changes. Electronically signed by: Nestor Cedeno MD 08/11/2018 8:51 AM EDT
[2018-08-11] MEDS: dilTIAZem CD 240 MG Capsule PO SCH (09:50)
[2018-08-11] MEDS: Famotidine 20 MG Tablet PO SCH ×2 (09:50→20:38)
[2018-08-11] MEDS: Enoxaparin Inj 30 MG/0.3 ML Syringe SQ SCH (09:51)
[2018-08-11] MEDS: Pantoprazole Sodium 20 MG DR Tablet PO SCH (09:51)
[2018-08-11] MEDS: Hydrocortisone Sod Succinate 250 MG Vial IV.PUSH SCH ×3 (10:05→20:39)
[2018-08-11] MEDS: guaiFENesin 600 MG ER Tablet PO SCH ×2 (13:09→20:39)
--- NOTE | 2018-08-11 15:06 | ECG ---
Date Performed: 08/10/2018 Time Performed: 13:49:14 PTAGE: 77 years EKG: Sinus rhythm WITH OCCASIONAL SUPRAVENTRICULAR PREMATURE COMPLEXES BORDERLINE ECG PREVIOUS TRACING : 09/19/2017 14.51 Since the previous tracing, no significant change noted DOCTOR: Jeronimo Gates Interpretating Date/Time 08/11/2018 15:04:35
--- NOTE | 2018-08-11 16:56 | P.PN ---
Subjective Interval history: Patient is seen sitting up in bed. She is wearing nasal cannula; she does not use O2 at home. She does report that she is feeling better although she is still very short of breath when doing things like trying to go to the bathroom. No chest pain. No nausea vomiting or diarrhea. Physical Exam Vital signs: Vital Signs 08/10/18 17:38 08/10/18 19:17 08/10/18 19:20 Temperature Pulse Rate 73 80 74 Respiratory Rate 20 18 Blood Pressure 171/80 H 195/87 H Pulse Oximetry 97 08/10/18 20:00 08/10/18 22:30 08/10/18 23:15 Temperature Pulse Rate 70 74 Respiratory Rate 18 18 Blood Pressure Pulse Oximetry 95 97 08/11/18 01:11 08/11/18 03:31 08/11/18 04:00 Temperature 97.8 F Pulse Rate 75 76 70 Respiratory Rate 20 18 15 Blood Pressure 192/81 H 150/82 H Pulse Oximetry 93 L 92 L 08/11/18 07:31 08/11/18 07:47 08/11/18 11:14 Temperature 98.2 F Pulse Rate 74 69 70 Respiratory Rate 18 18 17 Blood Pressure 163/77 H Pulse Oximetry 94 L 99 08/11/18 11:54 08/11/18 13:09 08/11/18 16:24 Temperature 97.9 F 97.7 F Pulse Rate 73 64 Respiratory Rate 16 16 Blood Pressure 164/76 H 157/69 H Pulse Oximetry 94 L 92 L 95 Intake & Output 08/10/18 08/11/18 08/11/18 18:59 06:59 18:59 Intake Total 150 / 150 680 / 680 100 / 100 Balance 150 / 150 680 / 680 100 / 100 Weight 82.554 kg 84.6 kg Intake: IV 150 / 150 200 / 200 100 / 100 Azactam Inj 2 GM In NS Inj 100 200 / 200 100 / 100 ML @ 200 mls/hr IV.SIG Q8H [facility] Rx#:[id number] Levaquin 750 mg Premix Inj 150 150 / 150 ML @ 100 mls/hr IV.SIG Q24H [facility] Rx#:[id number] Oral 480 / 480 Other: # Voids 1 Date of Last Bowel Movement 08/10/18 08/10/18 Weight On Admission 82.554 kg Narrative: GENERAL: Elderly female, no acute distress SKIN: Warm and dry. EYES: No scleral icterus. No injection or drainage. ENT: No nasal bleeding or discharge. Mucous membranes pink and moist. CARDIOVASCULAR: Regular rate and rhythm. no murmurs RESPIRATORY: Profound expiratory wheeze, mildly labored breathing, diminished breath sounds in the bases. Frequent, unprovoked and productive cough. GASTROINTESTINAL: Abdomen soft, non-tender, nondistended. Extremities: No clubbing, cyanosis, or edema. No obvious deformities. NEUROLOGICAL: Awake and alert. No obvious cranial nerve deficits. No facial droop nor slurred speech noted. PSYCHIATRIC: Appropriate mood and affect; insight and judgment normal. Results - Labs CBC & Chem 7: 08/10/18 14:10 08/10/18 14:10 Laboratory Results - last 24 hr 08/10/18 08/11/18 17:45 07:00 Procalcitonin 0.09 H Urine Color Yellow Urine Clarity Clear Urine pH 5.0 Ur Specific [place] 1.020 Urine Protein Negative Urine Glucose (UA) Negative Urine Ketones Negative Urine Occult Blood Negative Urine Nitrate Negative Urine Bilirubin Negative Urine Urobilinogen Less than 2 Ur Leukocyte Esterase Small H Urine RBC 3 Urine WBC 16 H Ur Squamous Epith Cells <1 Calcium Oxalate Crystal Few H Urine Mucus Few H Micro UA Comment Culture indicated Ur Microscopic Review Not Reportable Urine Culture Comments Culture indicated Microbiology 08/10/18 14:25 Blood - Peripheral Aerobic Blood Culture - Preliminary No growth in 1 day 08/10/18 14:25 Blood - Peripheral Anaerobic Blood Culture - Preliminary No growth in 1 day 08/10/18 14:10 Blood - Peripheral Aerobic Blood Culture - Preliminary No growth in 1 day 08/10/18 14:10 Blood - Peripheral Anaerobic Blood Culture - Preliminary No growth in 1 day - Imaging Impressions Chest X-Ray 08/11/18 07:00 CONCLUSION: Stable examination compared to the prior study with an infiltrate in the lingula segment of the left lower lung. No new or significant changes. Assessment and Plan - Plan 77-year-old white female being admitted for shortness of breath, asthma exacerbation, possible pneumonia Shortness of breath Asthma exacerbation with possible pneumonia Hydrocortisone 25 mg -patient cannot take Solu-Medrol Continue Levaquin and aztreonam for now -Scheduled duo nebs every 4 hours, albuterol as needed every 2 hours -If respiratory distress not improved by tomorrow morning, then proceed with SHANNAN Castillo fib Continue home Cardizem - needs anticoagulation upon discharge due to elevated chadsvasc lovenox Addendum: Patient notified nurse who notified me that she cannot take Solu- Medrol because it makes her "asthma worse." She is willing to take only Solu- Cortef while in the hospital. We will switch from Solu-Medrol to hydrocortisone 250 mg every 6 hours Discharge planning: Likely home
[2018-08-11] MEDS ORDERED: Hydrocortisone Sod Succinate 250 MG Vial IV.PUSH SCH (19:00)
[2018-08-12] MEDS: Aztreonam Inj 2 GM in Sodium Chloride 0.9% Inj 100 ML IV.SIG SCH ×2 (01:29→10:47)
[2018-08-12] MEDS: RESP: Albuterol Concentrated 2.5 MG/0.5 ML Neb NEB PRN (01:34)
[2018-08-12] MEDS: Hydrocortisone Sod Succinate 250 MG Vial IV.PUSH SCH ×2 (02:27→10:22)
[2018-08-12] MEDS: Pantoprazole Sodium 20 MG DR Tablet PO SCH (10:22)
[2018-08-12] MEDS: Famotidine 20 MG Tablet PO SCH (10:22)
[2018-08-12] MEDS: Enoxaparin Inj 30 MG/0.3 ML Syringe SQ SCH (10:23)
[2018-08-12] MEDS: guaiFENesin 600 MG ER Tablet PO SCH (10:23)
[2018-08-12] MEDS: dilTIAZem CD 240 MG Capsule PO SCH (10:23)
[2018-08-12 12:07] VITALS: TEMP 98.8; O2SAT 91
[2018-08-12 12:16] VITALS: BP 164/90
[2018-08-12 12:26] VITALS: PULSE 89; RESP 20
[2018-08-12] MEDS ORDERED: levoFLOXacin 750 MG Tablet PO ONE (12:55)
--- NOTE | 2018-08-12 12:55 | P.PN ---
Subjective Interval history: Patient is seen sitting up in bed. She reports that she is feeling much better and would like to go home as soon as possible. No chest pain. Shortness of breath has improved but not completely resolved. No nausea vomiting or diarrhea. She does tell me that she previously used oxygen at home for over 2 years but weaned herself off in November of this year. She primarily used it at night but did often rely on it during the day as well. Physical Exam Vital signs: Vital Signs 08/11/18 13:09 08/11/18 16:24 08/11/18 19:42 Temperature 97.7 F Pulse Rate 64 77 Respiratory Rate 16 22 Blood Pressure 157/69 H Pulse Oximetry 92 L 95 94 L Pulse Oximetry [Resting on Room Air] 08/11/18 20:00 08/12/18 00:00 08/12/18 01:34 Temperature 98.4 F 98.3 F Pulse Rate 69 72 72 Respiratory Rate 20 18 18 Blood Pressure 150/74 H 146/80 H Pulse Oximetry 92 L 93 L Pulse Oximetry [Resting on Room Air] 08/12/18 04:00 08/12/18 07:31 08/12/18 07:52 Temperature 97.8 F 97.7 F Pulse Rate 71 78 92 H Respiratory Rate 18 18 22 Blood Pressure 162/83 H 155/75 H Pulse Oximetry 93 L 93 L 92 L Pulse Oximetry [Resting on Room Air] 87 L 08/12/18 10:20 08/12/18 12:00 08/12/18 12:12 Temperature 98.8 F Pulse Rate 88 82 Respiratory Rate 16 Blood Pressure 191/97 H 166/86 H Pulse Oximetry 92 L 91 L Pulse Oximetry [Resting on Room Air] 08/12/18 12:14 08/12/18 12:25 Temperature Pulse Rate 89 Respiratory Rate 20 Blood Pressure 164/90 H Pulse Oximetry Pulse Oximetry [Resting on Room Air] Intake & Output 08/11/18 08/12/18 08/12/18 18:59 06:59 18:59 Intake Total 350 / 350 580 / 580 100 / 100 Balance 350 / 350 580 / 580 100 / 100 Intake: IV 350 / 350 100 / 100 100 / 100 Azactam Inj 2 GM In NS Inj 100 200 / 200 100 / 100 100 / 100 ML @ 200 mls/hr IV.SIG Q8H [facility] Rx#:[id number] Levaquin 750 mg Premix Inj 150 150 / 150 ML @ 100 mls/hr IV.SIG Q24H [facility] Rx#:[id number] Oral 480 / 480 Other: # Voids 3 2 Date of Last Bowel Movement 08/10/18 08/11/18 Narrative: GENERAL: Elderly female, no acute distress SKIN: Warm and dry. EYES: No scleral icterus. No injection or drainage. ENT: No nasal bleeding or discharge. Mucous membranes pink and moist. CARDIOVASCULAR: Regular rate and rhythm. no murmurs RESPIRATORY: Profound expiratory wheeze, mildly labored breathing, diminished breath sounds in the bases. Frequent, unprovoked and productive cough. GASTROINTESTINAL: Abdomen soft, non-tender, nondistended. Extremities: No clubbing, cyanosis, or edema. No obvious deformities. NEUROLOGICAL: Awake and alert. No obvious cranial nerve deficits. PSYCHIATRIC: Appropriate mood and affect; insight and judgment normal. Results - Labs CBC & Chem 7: 08/10/18 14:10 08/10/18 14:10 Microbiology 08/10/18 14:25 Blood - Peripheral Aerobic Blood Culture - Preliminary No growth in 2 days 08/10/18 14:25 Blood - Peripheral Anaerobic Blood Culture - Preliminary No growth in 2 days 08/10/18 14:10 Blood - Peripheral Aerobic Blood Culture - Preliminary No growth in 2 days 08/10/18 14:10 Blood - Peripheral Anaerobic Blood Culture - Preliminary No growth in 2 days Assessment and Plan - Plan 77-year-old white female being admitted for shortness of breath. Asthma exacerbation Hydrocortisone 25 mg -patient cannot take Solu-Medrol Pneumonia Continue Levaquin and aztreonam -Scheduled duo nebs every 4 hours, albuterol as needed every 2 hours -will need home O2 A. fib Continue home Cardizem DVT: lovenox Discharge planning: Likely home
--- NOTE | 2018-08-12 13:01 | P.DS ---
Date of admission: 08/10/18 17:05 Primary care physician: Krystina Mendoza MD Attending physician on discharge: Ami Acevedo Anticipated date of discharge: 08/12/18 Brief History from admission: 77-year-old white female being admitted for shortness of breath. Patient was in her usual state of health until 1 week ago when she began developing a cough. The cough progressed and she started developing worsening shortness of breath with wheezing. Now she says she has to rest as she ambulates from room to room to catch her breath. Denies having any nausea vomiting. Denies having any angle chest pain. Reports having a wet cough but does not actually have any productive sputum. Says 1 day after her cough she started taking prednisone 20 mg as well as starting a Z-Rudolph and albuterol nebulizations, then increased her dosing to 20 mg twice daily afterwards since her symptoms did not improve. This morning she had actually taken 60 mg since her symptoms worsened. Patient denies having any pleuritic chest pain. The emergency department she is noted to be saturating about 90% on room air. Her blood pressure was in the 200s systolic. Chest x-ray was being read as having a lingular infiltrate but upon my independent review I see no angle isolated consolidation. Patient was given a dose of Levaquin and aztreonam. Blood cx's were obtained in the ED. Patient reports being compliant with her asthma medications including her Advair. Says she has not had to take her nebulizers in a while. Says that she lives with her who smokes indoors. DS: Diagnosis - Discharge Diagnosis (1) Asthma Status: Chronic (2) SOB (shortness of breath) Status: Acute (3) Pneumonia, community acquired Status: Acute DS: Medications - Discharge Medications Prescriptions: guaifenesin [Mucinex] 600 mg PO BID #10 tab hydrocortisone [Cortef] 10 mg PO BID #10 tab levofloxacin 750 mg PO DAILY #5 tab DS: Summary Hospital Course: 77-year-old white female being admitted for shortness of breath. Asthma exacerbation treated with treated with Hydrocortisone 25 mg -patient cannot take Solu-Medrol. Pneumonia treated with Levaquin and aztreonam. Will restart home O2 due to easy desaturation with any exertion. - Time Spent with Patient Total time spent providing and/or coordinating discharge services: Less than 30 minutes - Quality: VTE Deep Vein Thrombosis/Pulmonary Embolism Present on Admission: No Exam Vital signs: Vital Signs 08/11/18 13:09 08/11/18 16:24 08/11/18 19:42 Temperature 97.7 F Pulse Rate 64 77 Respiratory Rate 16 22 Blood Pressure 157/69 H Pulse Oximetry 92 L 95 94 L Pulse Oximetry [Resting on Room Air] 08/11/18 20:00 08/12/18 00:00 08/12/18 01:34 Temperature 98.4 F 98.3 F Pulse Rate 69 72 72 Respiratory Rate 20 18 18 Blood Pressure 150/74 H 146/80 H Pulse Oximetry 92 L 93 L Pulse Oximetry [Resting on Room Air] 08/12/18 04:00 08/12/18 07:31 08/12/18 07:52 Temperature 97.8 F 97.7 F Pulse Rate 71 78 92 H Respiratory Rate 18 18 22 Blood Pressure 162/83 H 155/75 H Pulse Oximetry 93 L 93 L 92 L Pulse Oximetry [Resting on Room Air] 87 L 08/12/18 10:20 08/12/18 12:00 08/12/18 12:12 Temperature 98.8 F Pulse Rate 88 82 Respiratory Rate 16 Blood Pressure 191/97 H 166/86 H Pulse Oximetry 92 L 91 L Pulse Oximetry [Resting on Room Air] 08/12/18 12:14 08/12/18 12:25 Temperature Pulse Rate 89 Respiratory Rate 20 Blood Pressure 164/90 H Pulse Oximetry Pulse Oximetry [Resting on Room Air] Intake & Output 08/11/18 08/12/18 08/12/18 18:59 06:59 18:59 Intake Total 350 / 350 580 / 580 100 / 100 Balance 350 / 350 580 / 580 100 / 100 Intake: IV 350 / 350 100 / 100 100 / 100 Azactam Inj 2 GM In NS Inj 100 200 / 200 100 / 100 100 / 100 ML @ 200 mls/hr IV.SIG Q8H PARI Rx#:[id number] Levaquin 750 mg Premix Inj 150 150 / 150 ML @ 100 mls/hr IV.SIG Q24H PARI Rx#:[id number] Oral 480 / 480 Other: # Voids 3 2 Date of Last Bowel Movement 08/10/18 08/11/18 Narrative: GENERAL: Elderly female, no acute distress SKIN: Warm and dry. EYES: No scleral icterus. No injection or drainage. ENT: No nasal bleeding or discharge. Mucous membranes pink and moist. CARDIOVASCULAR: Regular rate and rhythm. no murmurs RESPIRATORY: Profound expiratory wheeze, mildly labored breathing, diminished breath sounds in the bases. Frequent, unprovoked and productive cough. GASTROINTESTINAL: Abdomen soft, non-tender, nondistended. Extremities: No clubbing, cyanosis, or edema. No obvious deformities. NEUROLOGICAL: Awake and alert. No obvious cranial nerve deficits. PSYCHIATRIC: Appropriate mood and affect; insight and judgment normal. Results Procedures completed during hospitalization: none Labs on day of discharge: Preliminary micro results at discharge 08/10/18 14:25 Aerobic Blood Culture - Preliminary Blood - Peripheral No growth in 2 days Anaerobic Blood Culture - Preliminary No growth in 2 days 08/10/18 14:10 Aerobic Blood Culture - Preliminary Blood - Peripheral No growth in 2 days Anaerobic Blood Culture - Preliminary No growth in 2 days - Impressions ITS Impressions Chest X-Ray 08/11/18 07:00 CONCLUSION: Stable examination compared to the prior study with an infiltrate in the lingula segment of the left lower lung. No new or significant changes. Discharge Plan - Discharge Disposition Patient Disposition: Discharge Home - Discharge Condition Condition: Stable - Discharge Order Discharge Orders: Discharge Order (Routine); Ordered 08/12/18 Ordered By: Cadence Franks - Physicians Team Primary Care Provider: Krystina Mendoza Attending Provider: Ami Acevedo
[2018-08-12] MEDS ORDERED: Hydrocortisone 10 MG Tablet PO SCH (21:00)
[2018-08-13] MEDS ORDERED: levoFLOXacin 750 MG Tablet PO SCH (13:00)
== END 2018-08-12 13:41 | disposition home or self-care (01) ==
LOC: NEDA 13:00 → NEPC 13:00 → NEPHCDU 08-11 02:31
PROVIDERS: ADMIT Internal Medicine; ATTEND Internal Medicine

== ENCOUNTER 2018-12-28 03:45 | Inpatient (IN) ==
[2018-12-28 04:37] LABS: Baso % (Auto) 0.1 % (0.0-2.0); Eos % (Auto) 0.1 % (0.0-4.0); Hematocrit 39.2 % (35.0-46.0); Hemoglobin 13.3 gm/dL (11.6-15.3); Lymph # (Auto) 1.1 th/mm3 (1.0-4.8); Lymph % (Auto) 6.7 % (9.0-44.0); Mean Corpuscular Hemoglobin 31.3 pg (27.0-34.0); Mean Corpuscular Volume 91.8 fL (80.0-100.0); Mean Platelet Volume 7.2 fL (7.0-11.0); Mono % (Auto) 6.1 % (0.0-8.0); Neut # (Auto) 14.6 th/mm3 (1.8-7.7); Platelet Count 473 th/mm3 (150-450); Red Blood Count 4.26 mil/mm3 (4.00-5.30); Red Cell Distribution Width 14.4 % (11.6-17.2); White Blood Count 16.8 th/mm3 (4.0-11.0)
[2018-12-28 04:44] LABS: Activated Partial Thrombo Time 22.2 sec (23.4-31.7); INR 0.9 Ratio; Prothrombin Time 9.4 sec (9.8-11.6)
[2018-12-28 04:51] LABS: Alanine Aminotransferase 26 U/L (10-53); Albumin 2.9 g/dL (3.4-5.0); Anion Gap 8 meq/L (5-15); Aspartate Aminotransferase 14 U/L (15-37); Blood Urea Nitrogen 35 mg/dL (7-18); Calcium 8.5 mg/dL (8.5-10.1); Carbon Dioxide 24.9 meq/L (21.0-32.0); Chloride 109 meq/L (98-107); Glomerular Filtration Rate 59 mL/min (>89); Glucose,Random 152 mg/dL (74-106); Lipase 101 U/L (73-393); Magnesium 2.2 mg/dL (1.5-2.5); Potassium 4.3 meq/L (3.5-5.1); Sodium 142 meq/L (136-145)
[2018-12-28] MEDS ORDERED: dilTIAZem Inj 125 MG in Sodium Chlor 0.9% Inj 100 ML IV.CONT PRN (04:52)
[2018-12-28 04:55] LABS: Alkaline Phosphatase 72 U/L (45-117); Creatine Kinase 115 U/L (26-192); Total Protein 6.4 g/dL (6.4-8.2)
--- NOTE | 2018-12-28 05:00 | ED ---
HPI General Chief complaint: Arrhythmia / Palpitations Stated complaint: Respiratory Time Seen by Provider: 12/28/18 04:07 Source: patient Limitations: no limitations History of Present Illness HPI narrative: The patient is a 78 year old female who presents to the [facility] emergency department with a history of noticing that her heart rate was in the 130s prior to arrival when she checked her pulse ox this evening. The patient reports that she occasionally checks her pulse oximetry as she is on oxygen as needed related to a history of asthma. She reports that her pulse ox was normal, however her heart rate was elevated. She reports that 7 or 8 years ago she was diagnosed with atrial fibrillation, however it spontaneously converted and she was on medication for it only for 2 months before this was discontinued. She does have a history of hypertension and is on diltiazem for this. She is on 360 mg once a day which she takes in the morning. Her high risk ob is Dr. Howell. She reports that she last had a stress test with him 2-3 weeks ago that was reportedly unremarkable. She denies having any history of hyperlipidemia or diabetes mellitus. She denies having any prior history of stroke. The patient's recent history is also complicated by having a cough and congestion. The patient reports that 8-9 days ago she had a fever with a T-max of 101.3, however this did resolve. She reports that she is currently on a prednisone taper and taking 40 mg twice a day. She reports having a sore throat. The patient's cough is nonproductive. She reports that since she started the prednisone taper her shortness of breath is actually improved today. She reports that she has been taking a Mucinex as well. She is unsure whether the Mucinex has a decongestant in it. On review of systems otherwise, the patient denies having any neck pain, abdominal pain, vomiting, diarrhea, urinary symptoms, or neurologic symptoms. Related Data Home Medications Medication Instructions Recorded Confirmed carisoprodol [Soma] 350 mg PO QID PRN 08/10/18 12/28/18 diltiazem HCl 360 mg PO DAILY 08/10/18 12/28/18 fluticasone-salmeterol [Advair 1 inh INHALATION BID 08/10/18 12/28/18 Diskus] omeprazole 20 mg PO DAILY 08/10/18 12/28/18 ranitidine HCl 150 mg PO BID 08/10/18 12/28/18 Previous Rx's Medication Instructions Recorded guaifenesin [Mucinex] 600 mg PO BID #10 tab 08/12/18 hydrocortisone [Cortef] 10 mg PO BID #10 tab 08/12/18 Allergies Allergy/AdvReac Type Severity Reaction Status Date / Time ammonia Allergy Severe Shortness Verified 12/28/18 03:50 of Breath aspartame Allergy Severe Shortness Verified 12/28/18 03:50 of Breath aspirin Allergy Severe Shortness Verified 12/28/18 03:50 of Breath cefaclor Allergy Severe Blister Verified 12/28/18 03:50 dexamethasone Allergy Severe Shortness Verified 12/28/18 03:50 of Breath formaldehyde Allergy Severe Shortness Verified 12/28/18 03:50 of Breath ibuprofen Allergy Severe Shortness Verified 12/28/18 03:50 of Breath metaproterenol Allergy Severe Shortness Verified 12/28/18 03:50 of Breath methylprednisolone Allergy Severe Shortness Verified 12/28/18 03:50 of Breath metoclopramide Allergy Severe Shortness Verified 12/28/18 03:50 of Breath mometasone furoate Allergy Severe Shortness Verified 12/28/18 03:50 of Breath nifedipine Allergy Severe Shortness Verified 12/28/18 03:50 of Breath piroxicam Allergy Severe Shortness Verified 12/28/18 03:50 of Breath CARPET SHAMPOO'S Allergy Mild Shortness Uncoded 12/28/18 03:50 of Breath CARPETS Allergy Mild Shortness Uncoded 12/28/18 03:50 of Breath CLEANING AGENTS Allergy Mild Shortness Uncoded 12/28/18 03:50 of Breath [facility] Allergy Mild CAUSE Uncoded 12/28/18 03:50 ASTHMA FLARE UPS STEFF-CHEMICALS Allergy Mild Shortness Uncoded 12/28/18 03:50 of Breath Review of Systems ROS: all other systems reviewed are negative [facility] Medical History Medical History Afib (Acute) Asthma (Acute) Kidney stone (Acute) Surgical History Surgical History History of cholecystectomy (Acute) History of repair of anterior cruciate ligament of left knee (Acute) Family History Family History Other A-fib Parkinsons Social History Social History Substance History: No History of Abuse Second Hand Smoke Exposure: Yes Smoking Status: Never smoker How Often Do You Have a Drink Containing Alcohol: 2 to 4 times a month Recent Travel in [facility] within the Last 8 Weeks: No Recent Out of Country Travel within the Last 8 Weeks: No Immunization History Tetanus Immunization: Unsure Exam Const General: cooperative, no acute distress and well developed Nutritional Appearance: well nourished Orientation: alert, awake and oriented x3 HENMT Head: normocephalic and atraumatic Nose: no nasal discharge and no epistaxis Mouth: moist mucous membranes Throat: uvula midline and other (White patches are noted along the soft palate and the posterior oropharynx and also in the buccal mucosa consistent with thrush.) Eyes Sclera: normal sclerae Pupils: PERRL Neck Neck: no meningeal signs, trachea midline and no JVD Resp Effort & Inspection: no use of accessory muscles Auscultation: clear to auscultation bilaterally Cardio Rate: tachycardic (Irregularly irregular with a rate in the 130) Rhythm: abnormal rhythm irregularly irregular Heart Sounds: no gallops, no murmurs and no rubs GI Inspection: non-distended Palpation: soft, no hepatosplenomegaly, no guarding, not rigid and nontender Auscultation: normal bowel sounds Back/Spine/Pelvis Back: no CVA tenderness Skin General: dry skin (warm) Neuro General: alert, awake, oriented x3 and other (Grossly nonfocal) Speech: speech normal Motor: no movement abnormalities noted Extrem General: normal to inspection, no calf tenderness, no clubbing, no cyanosis and edema (Trace pedal edema bilaterally.) Laterality: bilaterally Psych Mood: congruent mood Affect: normal affect Judgment: judgment good Course Initial Documented Vital Signs Temperature 97.3 F L 12/28/18 03:50 Pulse Rate 137 H 12/28/18 03:50 Respiratory Rate 15 12/28/18 03:50 Blood Pressure 171/96 H 12/28/18 03:50 Pulse Oximetry 99 12/28/18 03:50 Last Documented Vital Signs Temperature 97.3 F L 12/28/18 03:50 Pulse Rate 122 H 12/28/18 06:46 Respiratory Rate 20 12/28/18 06:46 Blood Pressure 176/96 H 12/28/18 06:46 Pulse Oximetry 95 12/28/18 06:46 Medical Decision Making MDM Narrative Medical decision making narrative: During the course of the patient's emergency department visit, the patient's history, examination, and differential diagnosis were reviewed with the patient. The patient was placed on a ekg monitor with oximetry and frequent blood pressure monitoring. The patient had IV access obtained and blood work sent for analysis. A diagnostic evaluation was started regarding the patient's tachycardia. The patient was initially provided Cardizem 15 mg IV followed by Cardizem as a drip. This will be titrated to obtain a heart rate less than or equal to 100. The patient was given clotrimazole je for thrush. The patient's diagnostic studies are remarkable for a white count of 16.8, hemoglobin 13.3, platelets 473 with 87 neutrophils, PT 9.4, PTT 22.2. Chemistries remarkable for chloride of 109, BUN 35, GFR 59, creatinine 0.93, glucose 152, AST 14, troponin I less than 0.02. Nasal washes negative for flu. The patient's chest x-ray showed bilateral basilar patchy opacities greater in the left lower lobe. Cardiomegaly and increased pulmonary vascularity are also noted. The patient had blood cultures x2 collected. The patient was given Levaquin 750 mg IV. The patient's case including history, pertinent physical examination findings, and laboratory studies were discussed with Dr. Alston. It was agreed that the patient would be admitted to the hospitalist service. The patient's results were discussed with the patient, including the plan of care. I explained that further testing and/ or monitoring is indicated based on the patient's history, examination, and/ or laboratory findings. Therefore, I recommended admission for additional evaluation. The patient expressed understanding and was agreeable with this plan. The patient was admitted to the hospital in guarded condition and sent to a bed under the care of the [facility] service. Medical Screen Exam Complete: Yes Emergency Medical Condition: Yes Differential Diagnosis Differential Diagnosis: Sinus tachycardia, versus SVT, versus atrial fibrillation, versus PACs, versus PVC Medical Records Medical records reviewed: Yes I reviewed the patient's medical records. Lab Data Lab results reviewed: Yes I reviewed the patient's lab results. Result diagrams: 12/28/18 04:23 12/28/18 04:23 Lab Results 12/28/18 12/28/18 12/28/18 Range/Units 04:23 04:23 04:23 WBC 16.8 H (4.0-11.0) th/mm3 RBC 4.26 (4.00-5.30) mil/mm3 Hgb 13.3 (11.6-15.3) gm/dL Hct 39.2 (35.0-46.0) % MCV 91.8 (80.0-100.0) fL MCH 31.3 (27.0-34.0) pg MCHC 34.0 (32.0-36.0) % RDW 14.4 (11.6-17.2) % Plt Count 473 H (150-450) th/mm3 MPV 7.2 (7.0-11.0) fL Prelim Diff (Auto) Slide review pending Neut % (Auto) 87.0 H (16.0-70.0) % Lymph % (Auto) 6.7 L (9.0-44.0) % Edmunds % (Auto) 6.1 (0.0-8.0) % Eos % (Auto) 0.1 (0.0-4.0) % Baso % (Auto) 0.1 (0.0-2.0) % Neut # (Auto) 14.6 H (1.8-7.7) th/mm3 Lymph # (Auto) 1.1 (1.0-4.8) th/mm3 Edmunds # (Auto) 1.0 H (0.0-0.9) th/mm3 Eos # (Auto) 0.0 (0.0-0.4) th/mm3 Baso # (Auto) 0.0 (0.0-0.2) th/mm3 WBC Differential . Diff Scan Auto diff confirmed Differential Comment . Platelet Estimate High H (Normal) Platelet Morphology Normal (Normal) PT (9.8-11.6) sec INR Ratio APTT (23.4-31.7) sec Sodium 142 (136-145) meq/L Potassium 4.3 (3.5-5.1) meq/L Chloride 109 H (98-107) meq/L Carbon Dioxide 24.9 (21.0-32.0) meq/L Anion Gap 8 (5-15) meq/L BUN 35 H (7-18) mg/dL Creatinine 0.93 (0.50-1.00) mg/dL Estimated GFR 59 L (>89) mL/min Random Glucose 152 H (74-106) mg/dL Calcium 8.5 (8.5-10.1) mg/dL Magnesium 2.2 (1.5-2.5) mg/dL Total Bilirubin 0.3 (0.2-1.0) mg/dL AST 14 L (15-37) U/L ALT 26 (10-53) U/L Alkaline Phosphatase 72 (45-117) U/L Total Creatine Kinase 115 (26-192) U/L CK-MB (CK-2) 4.3 H (0.5-3.6) ng/mL Troponin I Less than 0.02 L (0.02-0.05) ng/mL B-Natriuretic Peptide 73 (0-100) pg/mL Total Protein 6.4 (6.4-8.2) g/dL Albumin 2.9 L (3.4-5.0) g/dL Lipase 101 (73-393) U/L 12/28/18 Range/Units 04:23 WBC (4.0-11.0) th/mm3 RBC (4.00-5.30) mil/mm3 Hgb (11.6-15.3) gm/dL Hct (35.0-46.0) % MCV (80.0-100.0) fL MCH (27.0-34.0) pg MCHC (32.0-36.0) % RDW (11.6-17.2) % Plt Count (150-450) th/mm3 MPV (7.0-11.0) fL Prelim Diff (Auto) Neut % (Auto) (16.0-70.0) % Lymph % (Auto) (9.0-44.0) % Edmunds % (Auto) (0.0-8.0) % Eos % (Auto) (0.0-4.0) % Baso % (Auto) (0.0-2.0) % Neut # (Auto) (1.8-7.7) th/mm3 Lymph # (Auto) (1.0-4.8) th/mm3 Edmunds # (Auto) (0.0-0.9) th/mm3 Eos # (Auto) (0.0-0.4) th/mm3 Baso # (Auto) (0.0-0.2) th/mm3 WBC Differential Diff Scan Differential Comment Platelet Estimate (Normal) Platelet Morphology (Normal) PT 9.4 L (9.8-11.6) sec INR 0.9 Ratio APTT 22.2 L (23.4-31.7) sec Sodium (136-145) meq/L Potassium (3.5-5.1) meq/L Chloride (98-107) meq/L Carbon Dioxide (21.0-32.0) meq/L Anion Gap (5-15) meq/L BUN (7-18) mg/dL Creatinine (0.50-1.00) mg/dL Estimated GFR (>89) mL/min Random Glucose (74-106) mg/dL Calcium (8.5-10.1) mg/dL Magnesium (1.5-2.5) mg/dL Total Bilirubin (0.2-1.0) mg/dL AST (15-37) U/L ALT (10-53) U/L Alkaline Phosphatase (45-117) U/L Total Creatine Kinase (26-192) U/L CK-MB (CK-2) (0.5-3.6) ng/mL Troponin I (0.02-0.05) ng/mL B-Natriuretic Peptide (0-100) pg/mL Total Protein (6.4-8.2) g/dL Albumin (3.4-5.0) g/dL Lipase (73-393) U/L Imaging Data Radiologist's impression: Chest X-Ray 12/28/18 04:16 CONCLUSION: 1. Bibasilar patchy opacities greater left lower lobe. 2. Cardiomegaly and increase in pulmonary vascularity. ECG Data Attestation: I personally reviewed and interpreted this ECG as follows: Interpretation: The patient had an EKG done on arrival. The patient's EKG reveals atrial fibrillation with RVR, heart rate of 123, QRS duration is 88 ms, QTC [address] segment elevation. T waves are inverted in lead III. Discharge Plan Discharge Disposition Patient Disposition: ED Admit(ED Internal Use Only) Discharge Order Discharge Orders: ED Use Only Admit Order (Routine); Ordered 12/28/18 Ordered By: Sherlyn Celestin Discharge Details Diagnosis: Atrial fibrillation with RVR, Bilateral pulmonary infiltrates on chest x-ray Physicians Team ED Provider: Sherlyn Celestin Primary Care Provider: Brandon Goode Attending Provider: Ar Stout Other Providers: Shakeel Dow ED Status: Admitted Patient
[2018-12-28 05:07] LABS: Creatine Kinase MB 4.3 ng/mL (0.5-3.6)
[2018-12-28 05:22] LABS: Platelet Morphology Normal (Normal)
[2018-12-28] MEDS ORDERED: Nystatin Liq 500,000 UNIT/5 ML UDC SWISH-SWAL ONE (05:24)
[2018-12-28] MEDS ORDERED: Clotrimazole 10 MG Troche BUCCAL ONE (05:37)
--- NOTE | 2018-12-28 06:02 | XR ---
EXAM DATE: 12/28/2018 5:19 AM EST AGE/SEX: 78 years / Female INDICATIONS: Chest discomfort, rapid heart beat, coughing. CLINICAL DATA: This is the patient's initial encounter. Patient reports that signs and symptoms have been present for 1 day and indicates a pain score of 1/10. MEDICAL/SURGICAL HISTORY: Hypertension. A-fib None. COMPARISON: [facility], XR CHEST PA AND LAT, 10/02/2018. . FINDINGS: A single AP view of the chest demonstrates patchy densities in the lower lobes greater on the left. H eart enlarged. Increase in pulmonary vascularity The cardiomediastinal contours are unremarkable. Os seous structures are intact. CONCLUSION: 1. Bibasilar patchy opacities greater left lower lobe. 2. Cardiomegaly and increase in pulmonary vascularity. Electronically signed by: Hardik Herman MD Board Certified Radiologist 12/28/2018 6:01 AM EST
[2018-12-28] MEDS ORDERED: Acetaminophen 325 MG Tablet PO PRN (06:51)
[2018-12-28] MEDS ORDERED: Bisacodyl 10 MG Supp RECTAL PRN (06:51)
[2018-12-28] MEDS: Sod Chloride 0.9% Inj 1,000 ML IV.CONT SCH ×2 (08:04→18:20)
[2018-12-28] MEDS: dilTIAZem Inj 125 MG in Sodium Chlor 0.9% Inj 100 ML IV.CONT PRN ×2 (08:09→19:53)
[2018-12-28] MEDS: dilTIAZem CD 180 MG Capsule PO SCH ×2 (09:00→10:51)
--- NOTE | 2018-12-28 09:00 | MB ---
cc: Shakeel Dow MD, R Steven MD Schock, Dr. DATE: 12/28/2018 REASON FOR CONSULTATION: Atrial fibrillation. HISTORY OF PRESENT ILLNESS: Ms. Diggs is a 78-year-old white female known to me with history of remote atrial fibrillation without any recent documented episode since 2010, coronary artery spasm treated successfully with diltiazem, and chronic dyspnea on exertion and asthma. The patient presented to the emergency room last night with complaints of palpitations and tachycardia with heart rates in the 130s. She had been having trouble with her asthma and she is on prednisone 40 mg b.i.d. She currently is comfortable lying in bed. Denies any chest pains or palpitations. Denies any lightheadedness or syncope. She has been taking her medication at home as directed and I reviewed those with her. PAST MEDICAL HISTORY: Coronary artery spasm diagnosed years ago, was placed on diltiazem for this. Longstanding heart murmur. Paroxysmal atrial fibrillation 12/31/2010, without documented recurrence since then until last night. She was on anticoagulation briefly at that time, but not since. She has not used any aspirin because of aggravating of her asthma. She has longstanding hypertension, lower extremity edema. Denies history of myocardial infarction; heart failure; strokes; TIA; thyroid, liver, or kidney disease. PAST SURGICAL HISTORY: Cardiac catheterization in 1996, cholecystectomy 1999, ACL reconstruction 2003, right foot reconstruction 2007, hiatal hernia repair 2010, pulmonary arteriogram in 12/1987. ALLERGIES: MEDROL CAUSES ASTHMA, ASPIRIN CAUSES ASTHMA, CECLOR, CEFTIN, FELDENE. RECENT INTOLERANCE TO FUROSEMIDE DUE TO DIARRHEA AND TASTE ABNORMALITIES. MEDICATIONS AT HOME: Include Diltiazem CD 360 mg p.o. daily, omeprazole 20 mg b.i.d., prednisone 40 mg b.i.d., Advair 1 puff b.i.d., ranitidine 150 mg b.i.d., Soma 350 mg p.r.n., multivitamin daily, Metamucil daily, albuterol nebulizer p.r.n., Benadryl p.r.n. FAMILY HISTORY: Father at age 72 in a farm accident. Mother at age 100, old age. She has 4 brothers and 2 sisters alive. Brothers age range 81, 83, 87, and 96. The 81-year-old and 87-year-old have heart disease. Sisters age 85 with heart disease and 90. SOCIAL HISTORY: The patient denies tobacco use now or in the past. Consumes a glass of wine or cocktail 2 times a month. Denies any illicit drug use. , living with her . She is a retired homemaker. No regular exercise. REVIEW OF SYSTEMS: Has chronic lower extremity edema. Denies claudication. She has occasional palpitations. Denies lightheadedness or syncope. Denies fever, chills, night sweats, nausea, vomiting, or diarrhea. Denies bleeding or clotting disorders. Except for that mentioned in the HPI, a complete 12-point review of systems is otherwise negative. PHYSICAL EXAMINATION: GENERAL: Reveals an elderly, overweight, white female, in no distress. VITAL SIGNS: Blood pressure 176/96 mmHg, heart rate is 122 and irregular, respiratory rate 20, temperature afebrile at 97.3, oxygen saturation 95% on room air. HEENT: Head is normocephalic and atraumatic. Pupils equal, round, reactive to light. Sclerae are anicteric. Extraocular movements intact. NECK: Supple. There is no adenopathy. No jugular venous distention at 90 degrees. Carotid upstrokes normal. No bruits. Thyroid exam is normal. LUNGS: Clear. HEART: PMI is not displaced. S1, S2 are irregular and rapid. There is a grade I-II/ systolic murmur at the base. No diastolic murmur, gallops, clicks, or rubs. ABDOMEN: Benign. EXTREMITIES: No cyanosis or clubbing. There is +1 pretibial edema bilaterally in the lower extremities. There are no femoral bruits. NEUROLOGIC: Nonfocal. DIAGNOSTIC DATA: EKG shows in atrial fibrillation with a rapid ventricular response, 123 beats per minute. Abnormal EKG. No previous EKG for comparison. Chest x-ray: Basilar patchy opacities greater left lower lobe, cardiomegaly, and increase in pulmonary vasculature. Labs: CBC with white count 16.8, hemoglobin 13.3, platelet count 473,000. Coags are normal. Chemistries with sodium 142, potassium 4.3, chloride 109, CO2 of 24.9, BUN 35, creatinine 0.93, calcium 8.5, AST 14. CPK 115. Troponin I less than 0.02. BNP 73. Lipase 101. Echocardiogram: 11-24-18 LVEF = 63% RV dilatated. Aortic sclerosis with trace AI. Mild MR/TR Pharm. Stress-MPI: 12-02-18 Normal study. SPECT EF 77%. IMPRESSION: 1. Paroxysmal atrial fibrillation with a rapid ventricular response. 2. Hypertensive heart disease, needs more aggressive control. 3. History of asthma and mild pulmonary hypertension. 4. Chronic lower extremity edema, possibly aggravated by diltiazem. 5. Chronic dyspnea on exertion. 6. Leukocytosis, possibly related to underlying infection or steroid therapy. RECOMMENDATIONS: The patient has been already placed on antibiotic therapy and intravenous diltiazem. I will give an additional bolus of 20 mg IV now and get her back on her oral dose of 360 mg p.o. daily. I will postpone any antiarrhythmic therapy at this time because of incompatibilities with Levaquin, but may add these later when she is off antibiotics. Start anticoagulation therapy in the form of Eliquis 5 mg p.o. b.i.d. for stroke prophylaxis. I discussed this with the patient in detail today. Additionally, her blood pressure needs better control and I will add losartan 25 mg p.o. daily to her current regimen. I will follow her with you, with further recommendations as required. Thank you for allowing me to participate in the care of this patient. MD ERICK Hubbard/jessenia , 08:15 AM , 08:30 AM MABEL
--- NOTE | 2018-12-28 12:49 | ECG ---
Date Performed: 12/28/2018 Time Performed: 04:03:34 PTAGE: 78 years EKG: ATRIAL FIBRILLATION WITH RAPID VENTRICULAR RESPONSE LOW QRS VOLTAGE IN PRECORDIAL LEADS ABN ORMAL RHYTHM ECG Compared to PREVIOUS TRACING atrial fibrillation is new, Clinical correlation is recommended PREVIOU S TRACIN08/10/18 DOCTOR: Franklyn Arndt Interpretating Date/Time 12/28/2018 12:48:17
[2018-12-28] MEDS ORDERED: Carisoprodol 350 MG Tablet PO PRN (14:41)
--- NOTE | 2018-12-28 15:46 | P.HPIM ---
History of Present Illness Primary Care Physician: Brandon Goode MD Chief Complaint: Palpitations, Cough, Dyspnea History of Present Illness: Mrs. Diggs is a 78-year-old female. She came in secondary to cough, shortness of breath, and palpitations. She is found to have A. fib RVR in our emergency department and is admitted secondary to this. Additionally, she is found to have pneumonia. She had pneumonia in the past. Her last pneumonia episode was August 2017. Pneumonia is likely contributory to her A. fib RVR. She reports that she has had a cough for over a week. 4 days ago she had a fever but has not had a fever since, to her knowledge. When I am seeing her she has resolution of her A. fib RVR. No other complaints. No chest pain. Inpatient Certification Inpatient Certification: I certify that the inpatient services were ordered in accordance with Medicare regulations governing the order. This includes certification that hospital inpatient services are reasonable and necessary and in the case of services not specified as inpatient-only under 42 CFR 419.22(n), that they are appropriately provided as inpatient services in accordance to with the 2-midnight benchmark under 43 CFR 412.3(e) Estimated Total Length of Stay (Days): 2 Plans for Post Hospital Care: Home Review of Systems Constitutional: No fevers, no chills no night sweats, fatigue, weakness Eyes: No eye pain, no blurry vision, no loss of vision ENT: No sore throat, no ear pain, no rhinorrhea Cardiovascular: No chest pain, tachycardia, palpitations, no syncope Respiratory: No wheezing, cough, shortness of breath Gastrointestinal: No abdominal pain, no black tarry stools, no bright red blood per rectum, no vomiting, no diarrhea Musculoskeletal: No joint pain, no muscle cramps, no stiffness Integumentary: No rash, no ulcers, no drainage Neurologic: No sensory loss, no loss of motor function, no dizziness Psychiatric: No behavioral changes, no hallucinations, no suicidal ideations [facility] Medical History Medical History Afib (Acute) Asthma (Acute) Kidney stone (Acute) Surgical History Surgical History History of cholecystectomy (Acute) History of repair of anterior cruciate ligament of left knee (Acute) Family History Family History Other A-fib Parkinsons Social History Social History Substance History: No History of Abuse Second Hand Smoke Exposure: No Smoking Status: Never smoker How Often Do You Have a Drink Containing Alcohol: Monthly or less Recent Travel in [place] within the Last 8 Weeks: No Recent Out of Country Travel within the Last 8 Weeks: No Immunization History Tetanus Immunization: Unsure Medications and Allergies Allergies Allergy/AdvReac Type Severity Reaction Status Date / Time ammonia Allergy Severe Shortness Verified 12/28/18 03:50 of Breath aspartame Allergy Severe Shortness Verified 12/28/18 03:50 of Breath aspirin Allergy Severe Shortness Verified 12/28/18 03:50 of Breath cefaclor Allergy Severe Blister Verified 12/28/18 03:50 dexamethasone Allergy Severe Shortness Verified 12/28/18 03:50 of Breath formaldehyde Allergy Severe Shortness Verified 12/28/18 03:50 of Breath ibuprofen Allergy Severe Shortness Verified 12/28/18 03:50 of Breath metaproterenol Allergy Severe Shortness Verified 12/28/18 03:50 of Breath methylprednisolone Allergy Severe Shortness Verified 12/28/18 03:50 of Breath metoclopramide Allergy Severe Shortness Verified 12/28/18 03:50 of Breath mometasone furoate Allergy Severe Shortness Verified 12/28/18 03:50 of Breath nifedipine Allergy Severe Shortness Verified 12/28/18 03:50 of Breath piroxicam Allergy Severe Shortness Verified 12/28/18 03:50 of Breath CARPET SHAMPOO'S Allergy Mild Shortness Uncoded 12/28/18 03:50 of Breath CARPETS Allergy Mild Shortness Uncoded 12/28/18 03:50 of Breath CLEANING AGENTS Allergy Mild Shortness Uncoded 12/28/18 03:50 of Breath H[facility]PITALS [facility] Allergy Mild CAUSE Uncoded 12/28/18 03:50 ASTHMA FLARE UPS STEFF-CHEMICALS Allergy Mild Shortness Uncoded 12/28/18 03:50 of Breath Home Medications Medication Instructions Recorded Confirmed Type carisoprodol [Soma] 350 mg PO QID PRN 08/10/18 12/28/18 History diltiazem HCl 360 mg PO DAILY 08/10/18 12/28/18 History fluticasone-salmeterol [Advair 1 inh INHALATION BID 08/10/18 12/28/18 History Diskus] omeprazole 20 mg PO DAILY 08/10/18 12/28/18 History ranitidine HCl 150 mg PO BID 08/10/18 12/28/18 History Active Medications: Active Medications Acetaminophen (Tylenol) 650 mg PO Q4H PRN PRN Reason: Temp > 100.4 Al Hydroxide/Mg Hydroxide (Milk Of Magnesia Liq) 30 ml PO Q12H PRN PRN Reason: Mild Constipation Albuterol (Duoneb Neb (Prn)) 1 ampul NEB Q6HR NEB PRN PRN Reason: Dyspnea or Wheezing Apixaban (Eliquis) 5 mg PO BID [facility] Last Admin: 12/28/18 08:59 Dose: 5 mg Bisacodyl (Dulcolax Supp) 10 mg RECTAL DAILY PRN PRN Reason: SEVERE CONSITIPATION Budesonide/Formoterol Fumarate (Symbicort 160/4.5 Mcg Inh) 2 puff INH BID [facility] Carisoprodol (Soma) 350 mg PO QID PRN PRN Reason: Acute Pain Diltiazem HCl (Cardizem Cd 24hr) 360 mg PO DAILY [facility] Famotidine (Pepcid) 20 mg PO BID [facility] Guaifenesin (Mucinex Er) 600 mg PO BID [facility] Hydrocortisone Acetate (Cortef) 10 mg PO BID [facility] Sodium Chloride (Ns Inj) 1,000 mls @ 100 mls/hr IV.CONT .Q10H [facility] Last Admin: 12/28/18 08:04 Dose: 100 mls/hr Diltiazem HCl 125 mg/ Sodium (Chloride) 125 mls @ 10 mls/hr IV.CONT DAILY PRN PRN Reason: Per Protocol Last Admin: 12/28/18 08:09 Dose: 10 mg/hr, 10 mls/hr Lactulose (Lactulose Liq) 30 ml PO DAILY PRN PRN Reason: SEVERE CONSITIPATION Losartan Potassium (Cozaar) 25 mg PO DAILY [facility] Last Admin: 12/28/18 08:59 Dose: 25 mg Ondansetron HCl (Zofran Inj) 4 mg IV.PUSH Q6H PRN PRN Reason: NAUSEA OR VOMITING Pantoprazole Sodium (Protonix) 20 mg PO DAILY [facility] Sennosides (Senokot) 17.2 mg PO Q12H PRN PRN Reason: Moderate Constipation Sodium Chloride (Ns Flush) 2 ml IV.FLUSH BID [facility] Last Admin: 12/28/18 10:32 Dose: 2 ml Sodium Chloride (Ns Flush) 2 ml IV.FLUSH PRN PRN PRN Reason: FLUSH AFTER USING IV ACCESS Physical Exam Vital signs: Vital Signs 12/28/18 03:50 12/28/18 04:28 12/28/18 04:29 Temperature 97.3 F L Pulse Rate 137 H 113 H 113 H Respiratory Rate 15 18 Blood Pressure 171/96 H 146/87 H Pulse Oximetry 99 96 12/28/18 06:01 12/28/18 06:46 12/28/18 08:05 Temperature Pulse Rate 126 H 122 H 123 H Respiratory Rate 20 20 19 Blood Pressure 163/78 H 176/96 H 132/92 H Pulse Oximetry 96 95 98 12/28/18 08:26 12/28/18 09:01 12/28/18 10:00 Temperature Pulse Rate 135 H 117 H 112 H Respiratory Rate 17 17 Blood Pressure 145/95 H 174/81 H Pulse Oximetry 97 98 12/28/18 11:00 12/28/18 12:07 12/28/18 12:11 Temperature Pulse Rate 116 H 111 H 111 H Respiratory Rate 16 16 Blood Pressure 165/73 H 158/68 H Pulse Oximetry 99 97 12/28/18 13:22 Temperature 97.9 F Pulse Rate 82 Respiratory Rate 20 Blood Pressure 160/72 H Pulse Oximetry 93 L Intake & Output 12/27/18 12/28/18 12/28/18 18:59 06:59 18:59 Intake Total 170 / 170 Balance 170 / 170 Weight 81.647 kg 89.5 kg Intake: IV 170 / 170 Cardizem Inj 125 MG In NS Inj 20 / 20 100 ML @ 5 MG/HR 5 mls/hr IV. CONT TITRATE PRN Rx#:[id number] Levaquin 750 mg Premix Inj 150 150 / 150 ML @ 100 mls/hr IV.SIG ONCE ONE Rx#:[id number] Other: # Voids 1 Weight On Admission 81.64 kg Narrative: GENERAL: NAD, A&Ox3 HEAD: Normocephalic. NECK: Supple, trachea midline. No lymphadenopathy. EYES: No scleral icterus. No injection or drainage. CARDIOVASCULAR: Irregularly irregular rate and rhythm without murmurs, gallops, or rubs. RESPIRATORY: Breath sounds equal bilaterally. No accessory muscle use. Trace wheezing bilaterally, rhonchi. GASTROINTESTINAL: Abdomen soft, non-tender, nondistended. MUSCULOSKELETAL: No cyanosis, or edema. SKIN: Warm and dry. NEURO: No focal neurological deficits. Results Labs CBC & Chem 7: 12/28/18 04:23 12/28/18 04:23 Imaging Impressions Chest X-Ray 12/28/18 04:16 CONCLUSION: 1. Bibasilar patchy opacities greater left lower lobe. 2. Cardiomegaly and increase in pulmonary vascularity. Caprini VTE Risk Assessment Caprini VTE Risk Assessment: Moderate/High Risk (score >= 2) Caprini Risk Assessment Model: Point Value = 1 Point Value = 2 Point Value = 3 Point Value = 5 Age 41-60 Minor surgery BMI > 25 kg/m2 Swollen legs Varicose veins or History of unexplained or recurrent spontaneous Oral contraceptives or hormone replacement Sepsis (< 1 month) Serious lung disease, including pneumonia (< 1 month) Abnormal pulmonary function Acute myocardial infarction Congestive heart failure (< 1 month) History of inflammatory bowel disease Medical patient at bed rest Age 61-74 Arthroscopic surgery Major open surgery (> 45 min) Laparoscopic surgery (> 45 min) Malignancy Confined to bed (> 72 hours) Immobilizing plaster cast Central venous access Age >= 75 History of VTE Family history of VTE Factor V Leiden Prothrombin [id number] Lupus anticoagulant Anticardiolipin antibodies Elevated serum homocysteine Heparin-induced thrombocytopenia Other congenital or acquired thrombophilia Stroke (< 1 month) Elective arthroplasty Hip, pelvis, or leg fracture Acute spinal cord injury (< 1 month) Prophylaxis Regimen: Total Risk Factor Score Risk Level Prophylaxis Regimen 0-1 Low Early ambulation 2 Moderate Order ONE of the following: *Sequential Compression Device (SCD) *Heparin 5000 units SQ BID 3-4 Higher Order ONE of the following medications: *Heparin 5000 units SQ TID *Enoxaparin/Lovenox 40 mg SQ daily (WT < 150 kg, CrCl > 30 mL/min) *Enoxaparin/Lovenox 30 mg SQ daily (WT < 150 kg, CrCl > 10-29 mL/min) *Enoxaparin/Lovenox 30 mg SQ BID (WT < 150 kg, CrCl > 30 mL/min) AND/OR *Sequential Compression Device (SCD) 5 or more Highest Order ONE of the following medications: *Heparin 5000 units SQ TID (Preferred with Epidurals) *Enoxaparin/Lovenox 40 mg SQ daily (WT < 150 kg, CrCl > 30 mL/min) *Enoxaparin/Lovenox 30 mg SQ daily (WT < 150 kg, CrCl > 10-29 mL/min) *Enoxaparin/Lovenox 30 mg SQ BID (WT < 150 kg, CrCl > 30 mL/min) AND *Sequential Compression Device (SCD) Assessment and Plan Plan 78-year-old female admitted secondary to A. fib RVR with underlying pneumonia Community-acquired pneumonia Continue Levaquin Probiotic Follow clinically for improvement Oxygen as needed A. fib RVR Improved Plan for medical management Pneumonia likely contributory Continue p.o. diltiazem Eliquis Chronic asthma Continue hydrocortisone Continue Advair Diskus As needed duo nebs Muscle spasms Soma Gastroesophageal reflux disease Ranitidine Omeprazole DVT prophylaxis Eliqius H&P: Quality VTE Deep Vein Thrombosis/Pulmonary Embolism Present on Admission: No
[2018-12-28] MEDS: Lactobacillus Acidophilus/L. Spores Tablet PO SCH (18:18)
[2018-12-28] MEDS ORDERED: Budesonide-Formoterol 160/4.5 MCG 6 GM Inhaler INH SCH (21:00)
[2018-12-28] MEDS: guaiFENesin 600 MG ER Tablet PO SCH (21:27)
[2018-12-28] MEDS: Famotidine 20 MG Tablet PO SCH (21:28)
[2018-12-28] MEDS: Hydrocortisone 10 MG Tablet PO SCH (21:28)
[2018-12-29] MEDS: Sod Chloride 0.9% Inj 1,000 ML IV.CONT SCH ×5 (01:06→23:10)
[2018-12-29 06:10] LABS: Baso # (Auto) 0.1 th/mm3 (0.0-0.2); Baso % (Auto) 0.4 % (0.0-2.0); Eos # (Auto) 0.2 th/mm3 (0.0-0.4); Eos % (Auto) 1.3 % (0.0-4.0); Hematocrit 39.2 % (35.0-46.0); Hemoglobin 13.2 gm/dL (11.6-15.3); Lymph # (Auto) 2.2 th/mm3 (1.0-4.8); Lymph % (Auto) 15.3 % (9.0-44.0); Mean Corpuscular HGB Conc 33.8 % (32.0-36.0); Mean Corpuscular Hemoglobin 31.2 pg (27.0-34.0); Mean Corpuscular Volume 92.3 fL (80.0-100.0); Mean Platelet Volume 7.4 fL (7.0-11.0); Mono # (Auto) 1.1 th/mm3 (0.0-0.9); Mono % (Auto) 7.5 % (0.0-8.0); Neut # (Auto) 10.7 th/mm3 (1.8-7.7); Neut % (Auto) 75.5 % (16.0-70.0); Platelet Count 437 th/mm3 (150-450); Red Blood Count 4.25 mil/mm3 (4.00-5.30); Red Cell Distribution Width 14.6 % (11.6-17.2); White Blood Count 14.2 th/mm3 (4.0-11.0)
[2018-12-29 06:43] LABS: Alanine Aminotransferase 27 U/L (10-53); Alkaline Phosphatase 70 U/L (45-117); Blood Urea Nitrogen 29 mg/dL (7-18); Total Protein 6.1 g/dL (6.4-8.2)
[2018-12-29 06:59] LABS: Albumin 2.6 g/dL (3.4-5.0); Anion Gap 10 meq/L (5-15); Aspartate Aminotransferase 19 U/L (15-37); Calcium 7.9 mg/dL (8.5-10.1); Carbon Dioxide 22.4 meq/L (21.0-32.0); Chloride 109 meq/L (98-107); Glomerular Filtration Rate 59 mL/min (>89); Glucose,Random 114 mg/dL (74-106); Sodium 141 meq/L (136-145)
[2018-12-29 07:00] LABS: Potassium 4.7 meq/L (3.5-5.1)
[2018-12-29 08:05] LABS: Eosinophils 1 % (0-4); Lymphocytes 15 % (9-44); Metamyelocytes 2 % (0-1); Monocytes 7 % (0-8); Myelocytes 3 % (0-0); Platelet Estimate Normal (Normal); Platelet Morphology Normal (Normal)
[2018-12-29 08:06] LABS: RBC Morphology Normal (Normal)
--- NOTE | 2018-12-29 09:02 | P.PNCA ---
Subjective Interval history: Back in NSR thoday. Denies CP, or palpitations. Still SOB and cough. Medications and Allergies Active Medications: Active Medications Acetaminophen (Tylenol) 650 mg PO Q4H PRN PRN Reason: Temp > 100.4 Al Hydroxide/Mg Hydroxide (Milk Of Magnesia Liq) 30 ml PO Q12H PRN PRN Reason: Mild Constipation Albuterol (Duoneb Neb (Prn)) 1 ampul NEB Q6HR NEB PRN PRN Reason: Dyspnea or Wheezing Last Admin: 12/29/18 07:48 Dose: 1 ampul Apixaban (Eliquis) 5 mg PO BID PENDING SALE TO [facility] Last Admin: 12/28/18 21:27 Dose: 5 mg Bisacodyl (Dulcolax Supp) 10 mg RECTAL DAILY PRN PRN Reason: SEVERE CONSITIPATION Carisoprodol (Soma) 350 mg PO QID PRN PRN Reason: Acute Pain Diltiazem HCl (Cardizem Cd 24hr) 360 mg PO DAILY PENDING SALE TO [facility] Famotidine (Pepcid) 20 mg PO BID PENDING SALE TO [facility] Last Admin: 12/28/18 21:28 Dose: 20 mg Guaifenesin (Mucinex Er) 600 mg PO BID PENDING SALE TO [facility] Last Admin: 12/28/18 21:27 Dose: 600 mg Hydrocortisone Acetate (Cortef) 10 mg PO BID PENDING SALE TO [facility] Last Admin: 12/28/18 21:28 Dose: 10 mg Sodium Chloride (Ns Inj) 1,000 mls @ 100 mls/hr IV.CONT .Q10H PENDING SALE TO [facility] Last Admin: 12/29/18 05:03 Dose: Not Given Lactobacillus Acidophilus (Lactinex) 1 tab PO TID PENDING SALE TO [facility] Last Admin: 12/28/18 18:18 Dose: 1 tab Lactulose (Lactulose Liq) 30 ml PO DAILY PRN PRN Reason: SEVERE CONSITIPATION Losartan Potassium (Cozaar) 25 mg PO DAILY PENDING SALE TO [facility] Last Admin: 12/28/18 08:59 Dose: 25 mg Ondansetron HCl (Zofran Inj) 4 mg IV.PUSH Q6H PRN PRN Reason: NAUSEA OR VOMITING Pantoprazole Sodium (Protonix) 20 mg PO DAILY PENDING SALE TO [facility] Sennosides (Senokot) 17.2 mg PO Q12H PRN PRN Reason: Moderate Constipation Sodium Chloride (Ns Flush) 2 ml IV.FLUSH BID PENDING SALE TO [facility] Last Admin: 12/28/18 21:28 Dose: Not Given Sodium Chloride (Ns Flush) 2 ml IV.FLUSH PRN PRN PRN Reason: FLUSH AFTER USING IV ACCESS Allergies Allergy/AdvReac Type Severity Reaction Status Date / Time ammonia Allergy Severe Shortness Verified 12/28/18 03:50 of Breath aspartame Allergy Severe Shortness Verified 12/28/18 03:50 of Breath aspirin Allergy Severe Shortness Verified 12/28/18 03:50 of Breath cefaclor Allergy Severe Blister Verified 12/28/18 03:50 dexamethasone Allergy Severe Shortness Verified 12/28/18 03:50 of Breath formaldehyde Allergy Severe Shortness Verified 12/28/18 03:50 of Breath ibuprofen Allergy Severe Shortness Verified 12/28/18 03:50 of Breath metaproterenol Allergy Severe Shortness Verified 12/28/18 03:50 of Breath methylprednisolone Allergy Severe Shortness Verified 12/28/18 03:50 of Breath metoclopramide Allergy Severe Shortness Verified 12/28/18 03:50 of Breath mometasone furoate Allergy Severe Shortness Verified 12/28/18 03:50 of Breath nifedipine Allergy Severe Shortness Verified 12/28/18 03:50 of Breath piroxicam Allergy Severe Shortness Verified 12/28/18 03:50 of Breath CARPET SHAMPOO'S Allergy Mild Shortness Uncoded 12/28/18 03:50 of Breath CARPETS Allergy Mild Shortness Uncoded 12/28/18 03:50 of Breath CLEANING AGENTS Allergy Mild Shortness Uncoded 12/28/18 03:50 of Breath [facility] Allergy Mild CAUSE Uncoded 12/28/18 03:50 ASTHMA FLARE UPS STEFF-CHEMICALS Allergy Mild Shortness Uncoded 12/28/18 03:50 of Breath Home Medications Medication Instructions Recorded Confirmed Type carisoprodol [Soma] 350 mg PO QID PRN 08/10/18 12/28/18 History diltiazem HCl 360 mg PO DAILY 08/10/18 12/28/18 History fluticasone-salmeterol [Advair 1 inh INHALATION BID 08/10/18 12/28/18 History Diskus] omeprazole 20 mg PO DAILY 08/10/18 12/28/18 History ranitidine HCl 150 mg PO BID 08/10/18 12/28/18 History Physical Exam Vital signs: Vital Signs 12/28/18 09:01 12/28/18 10:00 12/28/18 11:00 Temperature Pulse Rate 117 H 112 H 116 H Respiratory Rate 17 17 16 Blood Pressure 145/95 H 174/81 H 165/73 H Pulse Oximetry 97 98 99 12/28/18 12:07 12/28/18 12:11 12/28/18 13:22 Temperature 97.9 F Pulse Rate 111 H 111 H 82 Respiratory Rate 16 20 Blood Pressure 158/68 H 160/72 H Pulse Oximetry 97 93 L 12/28/18 15:51 12/28/18 16:00 12/28/18 19:35 Temperature 97 F L Pulse Rate 82 77 83 Respiratory Rate 20 18 16 Blood Pressure 150/72 H Pulse Oximetry 96 94 L 12/28/18 20:00 12/29/18 00:00 12/29/18 01:22 Temperature 98.1 F 98 F Pulse Rate 87 72 79 Respiratory Rate 18 18 18 Blood Pressure 125/60 154/60 H Pulse Oximetry 94 L 95 12/29/18 01:24 12/29/18 04:00 12/29/18 07:50 Temperature 98 F Pulse Rate 77 67 Respiratory Rate 18 20 Blood Pressure 154/73 H Pulse Oximetry 94 L 93 L 94 L Intake & Output 12/28/18 12/29/18 12/29/18 18:59 06:59 18:59 Intake Total 930 / 930 1317 / 1317 Balance 930 / 930 1317 / 1317 Weight 89.5 kg Intake: IV 570 / 570 837 / 837 NS Inj 1,000 ML @ 100 mls/hr IV 400 / 400 600 / 600 .CONT .Q10H PARI Rx#:[id number] Cardizem Inj 125 MG In NS Inj 237 / 237 100 ML @ 10 MG/HR 10 mls/hr IV. CONT DAILY PRN Rx#:[id number] Levaquin 750 mg Premix Inj 150 150 / 150 ML @ 100 mls/hr IV.SIG ONCE ONE Rx#:[id number] Oral 360 / 360 480 / 480 Other: # Voids 2 2 # Bowel Movements 0 Weight On Admission 81.64 kg - Constitutional no acute distress - Routine Neck Exam Present: supple - Routine Respiratory Exam Present: rhonchi, wheezes - Routine Cardiovascular Exam Present: RRR, S1, S2 - Routine Extremities Exam Present: edema - Routine Skin Exam Present: intact - Routine Neurological Exam Present: alert, oriented X3 - Routine Psychiatric Exam Present: normal affect Results 12/29/18 04:25 12/29/18 04:05 Cardiac Enzymes 12/28/18 12/28/18 12/29/18 Range/Units 04:23 04:23 04:05 AST 14 L 19 (15-37) U/L CK-MB (CK-2) 4.3 H (0.5-3.6) ng/mL Troponin I Less than 0.02 L (0.02-0.05) ng/mL B-Natriuretic Peptide 73 (0-100) pg/mL Coagulation 12/28/18 12/28/18 Range/Units 04:23 04:23 PT 9.4 L (9.8-11.6) sec APTT 22.2 L (23.4-31.7) sec B-Natriuretic Peptide 73 (0-100) pg/mL CBC 12/28/18 12/29/18 Range/Units 04:23 04:25 WBC 16.8 H 14.2 H (4.0-11.0) th/mm3 RBC 4.26 4.25 (4.00-5.30) mil/mm3 Hgb 13.3 13.2 (11.6-15.3) gm/dL Hct 39.2 39.2 (35.0-46.0) % Plt Count 473 H 437 (150-450) th/mm3 Neut # (Auto) 14.6 H 10.7 H (1.8-7.7) th/mm3 Lymph # (Auto) 1.1 2.2 (1.0-4.8) th/mm3 [place] # (Auto) 1.0 H 1.1 H (0.0-0.9) th/mm3 Eos # (Auto) 0.0 0.2 (0.0-0.4) th/mm3 Baso # (Auto) 0.0 0.1 (0.0-0.2) th/mm3 Comprehensive Metabolic Panel 12/28/18 12/29/18 Range/Units 04:23 04:05 Sodium 142 141 (136-145) meq/L Potassium 4.3 4.7 (3.5-5.1) meq/L Chloride 109 H 109 H (98-107) meq/L Carbon Dioxide 24.9 22.4 (21.0-32.0) meq/L BUN 35 H 29 H (7-18) mg/dL Creatinine 0.93 0.93 (0.50-1.00) mg/dL Calcium 8.5 7.9 L (8.5-10.1) mg/dL AST 14 L 19 (15-37) U/L ALT 26 27 (10-53) U/L Alkaline Phosphatase 72 70 (45-117) U/L Total Protein 6.4 6.1 L (6.4-8.2) g/dL Albumin 2.9 L 2.6 L (3.4-5.0) g/dL Intake and Output 12/28/18 12/29/18 12/29/18 22:59 06:59 14:59 Intake Total 885 / 885 1192 / 1192 Balance 885 / 885 1192 / 1192 Intake: IV 525 / 525 712 / 712 NS Inj 1,000 ML @ 100 mls/hr IV 400 / 400 600 / 600 .CONT .Q10H PARI Rx#:[id number] Cardizem Inj 125 MG In NS Inj 125 / 125 112 / 112 100 ML @ 10 MG/HR 10 mls/hr IV. CONT DAILY PRN Rx#:[id number] Oral 360 / 360 480 / 480 Other: # Voids 2 2 # Bowel Movements 0 - Imaging and Cardiology Imaging: Impressions Chest X-Ray 12/28/18 04:16 CONCLUSION: 1. Bibasilar patchy opacities greater left lower lobe. 2. Cardiomegaly and increase in pulmonary vascularity. Assessment and Plan - Assessment (1) Paroxysmal atrial fibrillation Code(s): I48.0 - Paroxysmal atrial fibrillation Status: Acute (2) Hypertension Code(s): I10 - Essential (primary) hypertension Status: Acute (3) Pneumonia, community acquired Code(s): J18.9 - Pneumonia, unspecified organism Status: Acute (4) Asthma Code(s): J45.909 - Unspecified asthma, uncomplicated Status: Chronic - Plan BP still high. Increase losartan 50 mg po daily. Back in NSR. D/C IV cardizem and continue PO only for now. Continue Eliquis. Rx for PNA per hospitalist. I will arrange follow up in office 1-2 weeks. (3) Pneumonia, community acquired Qualifiers: Laterality: left Lung location: unspecified part of lung Qualified Code(s): J18.9 - Pneumonia, unspecified organism (4) Asthma Qualifiers: Asthma severity: moderate Asthma persistence: unspecified Asthma complication type: with acute exacerbation Qualified Code(s): J45.901 - Unspecified asthma with (acute) exacerbation
[2018-12-29] MEDS: Pantoprazole Sodium 20 MG DR Tablet PO SCH (09:08)
[2018-12-29] MEDS: Hydrocortisone 10 MG Tablet PO SCH ×2 (09:08→21:03)
[2018-12-29] MEDS: Famotidine 20 MG Tablet PO SCH ×2 (09:08→21:03)
[2018-12-29] MEDS: dilTIAZem CD 180 MG Capsule PO SCH (09:08)
[2018-12-29] MEDS: Lactobacillus Acidophilus/L. Spores Tablet PO SCH ×3 (09:09→17:31)
[2018-12-29] MEDS: guaiFENesin 600 MG ER Tablet PO SCH ×2 (09:09→21:02)
--- NOTE | 2018-12-29 12:28 | P.PNIM ---
Subjective Interval history: Patient reports he is feeling better today. She still has a significant cough. Feels very tired. Physical Exam Vital signs: Vital Signs 12/28/18 13:22 12/28/18 15:51 12/28/18 16:00 Temperature 97.9 F 97 F L Pulse Rate 82 82 77 Respiratory Rate 20 20 18 Blood Pressure 160/72 H 150/72 H Pulse Oximetry 93 L 96 12/28/18 19:35 12/28/18 20:00 12/29/18 00:00 Temperature 98.1 F 98 F Pulse Rate 83 87 72 Respiratory Rate 16 18 18 Blood Pressure 125/60 154/60 H Pulse Oximetry 94 L 94 L 95 12/29/18 01:22 12/29/18 01:24 12/29/18 04:00 Temperature 98 F Pulse Rate 79 77 Respiratory Rate 18 18 Blood Pressure 154/73 H Pulse Oximetry 94 L 93 L 12/29/18 07:50 12/29/18 08:00 12/29/18 12:13 Temperature 97.6 F Pulse Rate 67 80 73 Respiratory Rate 20 15 22 Blood Pressure 164/78 H Pulse Oximetry 94 L 97 Intake & Output 12/28/18 12/29/18 12/29/18 18:59 06:59 18:59 Intake Total 930 / 930 1317 / 1317 1000 / 1000 Balance 930 / 930 1317 / 1317 1000 / 1000 Weight 89.5 kg Intake: IV 570 / 570 837 / 837 1000 / 1000 NS Inj 1,000 ML @ 100 mls/hr IV 400 / 400 600 / 600 1000 / 1000 .CONT .Q10H PARI Rx#:[id number] Cardizem Inj 125 MG In NS Inj / 20 237 / 237 100 ML @ 10 MG/HR 10 mls/hr IV. CONT DAILY PRN Rx#:[id number] Levaquin 750 mg Premix Inj 150 150 / 150 ML @ 100 mls/hr IV.SIG ONCE ONE Rx#:[id number] Oral 360 / 360 480 / 480 Other: # Voids 2 2 # Bowel Movements 0 Weight On Admission 81.64 kg Narrative: GENERAL: NAD, A&Ox3 CARDIOVASCULAR: Normal rate and irregular rhythm without murmurs, gallops, or rubs. RESPIRATORY: Breath sounds equal bilaterally. No accessory muscle use. Faint rhonchi and wheezing bilaterally GASTROINTESTINAL: Abdomen soft, non-tender, nondistended. MUSCULOSKELETAL: No cyanosis, or edema. SKIN: Warm and dry. NEURO: No focal neurological deficits. Results Labs CBC & Chem 7: 12/29/18 04:25 12/29/18 04:05 Labs: Microbiology 12/28/18 07:15 Blood - Peripheral Aerobic Blood Culture - Preliminary No growth in 1 day 12/28/18 07:15 Blood - Peripheral Anaerobic Blood Culture - Preliminary No growth in 1 day 12/28/18 07:20 Blood - Peripheral Aerobic Blood Culture - Preliminary No growth in 1 day 12/28/18 07:20 Blood - Peripheral Anaerobic Blood Culture - Preliminary No growth in 1 day Assessment and Plan (1) Paroxysmal atrial fibrillation: Code(s): I48.0 - Paroxysmal atrial fibrillation Status: Acute (2) Hypertension: Code(s): I10 - Essential (primary) hypertension Status: Acute (3) Pneumonia, community acquired: Code(s): J18.9 - Pneumonia, unspecified organism Status: Acute (4) Asthma: Code(s): J45.909 - Unspecified asthma, uncomplicated Status: Chronic Plan 78-year-old female admitted secondary to A. fib RVR with underlying pneumonia Community-acquired pneumonia Continue Levaquin Probiotic Follow clinically for improvement Oxygen as needed A. fib RVR Pneumonia likely contributory Rate controlled currently. Continue p.o. diltiazem Eliquis Chronic asthma Continue hydrocortisone Continue Advair Diskus As needed duo nebs Muscle spasms Soma Gastroesophageal reflux disease Ranitidine Omeprazole DVT prophylaxis Eliqius Dispo: If she continues to improve, anticipate discharge tomorrow. Progress Note: Quality VTE Deep Vein Thrombosis/Pulmonary Embolism Present on Admission: No _ (1) Pneumonia, community acquired Qualifiers: Laterality: left Lung location: unspecified part of lung Qualified Code(s): J18.9 - Pneumonia, unspecified organism (2) Hypertension Qualifiers: Hypertension type: (3) Asthma Qualifiers: Asthma complication type: with acute exacerbation Asthma persistence: unspecified Asthma severity: moderate Qualified Code(s): J45.901 - Unspecified asthma with (acute) exacerbation
[2018-12-30 06:35] VITALS: O2SAT 95
--- NOTE | 2018-12-30 08:18 | P.DS ---
DS: Providers Date of admission: 12/28/18 06:51 Primary care physician: Brandon Goode MD Consults: 12/28/18 06:51 Consult to Cardiology Routine Consulting Provider: Shakeel Dow Does the patient have a Boiler Tenders Supervisor who follows them?: Yes Preferred Wood And Hardware Outfitter:: Shakeel Dow Reason for Consultation: AF RVR Notified:: Service Spoke with:: Rosanna Date Notified:: 12/28/18 Time Notified:: 07:01 Ordering Provider: RONAN Brief History from admission: HPI as documented by the admitting physician: Mrs. Diggs is a 78-year-old female. She came in secondary to cough, shortness of breath, and palpitations. She is found to have A. fib RVR in our emergency department and is admitted secondary to this. Additionally, she is found to have pneumonia. She had pneumonia in the past. Her last pneumonia episode was August 2017. Pneumonia is likely contributory to her A. fib RVR. She reports that she has had a cough for over a week. 4 days ago she had a fever but has not had a fever since, to her knowledge. When I am seeing her she has resolution of her A. fib RVR. No other complaints. No chest pain. Patient update on day of discharge: Patient reports she is feeling much better today. She is coughing less. No chest pain or pressure. DS: Diagnosis Discharge Diagnosis (1) Paroxysmal atrial fibrillation: Status: Acute (2) Hypertension: Status: Acute (3) Pneumonia, community acquired: Status: Acute (4) Asthma: Status: Chronic DS: Summary 78-year-old female admitted secondary to A. fib RVR with underlying community- acquired pneumonia. The patient was admitted and treated with IV antibiotics, breathing treatments, and oxygen as needed. She was found to be in atrial fibrillation on presentation which is likely secondary to pneumonia. She was followed by cardiology and rate controlled with oral medication. She will continue on Eliquis. Patient also has a history of asthma and her chronic home medications were continued. Her blood pressure was uncontrolled and her antihypertensives were titrated. She will follow-up outpatient with PCP and cardiology for further titration as needed. She will continue chronic home medications for GERD and muscle spasm. Time Spent with Patient Total time spent providing and/or coordinating discharge services: Quality: VTE Deep Vein Thrombosis/Pulmonary Embolism Present on Admission: No Exam Narrative Exam Narrative: GENERAL: NAD, A&Ox3 CARDIOVASCULAR: Normal rate and irregular rhythm without murmurs, gallops, or rubs. RESPIRATORY: Breath sounds equal bilaterally. No accessory muscle use. Faint rhonchi and wheezing bilaterally GASTROINTESTINAL: Abdomen soft, non-tender, nondistended. MUSCULOSKELETAL: No cyanosis, or edema. SKIN: Warm and dry. NEURO: No focal neurological deficits. Results Labs on day of discharge: Preliminary micro results at discharge 12/28/18 07:15 Aerobic Blood Culture - Preliminary Blood - Peripheral No growth in 1 day Anaerobic Blood Culture - Preliminary No growth in 1 day 12/28/18 07:20 Aerobic Blood Culture - Preliminary Blood - Peripheral No growth in 1 day Anaerobic Blood Culture - Preliminary No growth in 1 day Impressions ITS Impressions Chest X-Ray 12/28/18 04:16 CONCLUSION: 1. Bibasilar patchy opacities greater left lower lobe. 2. Cardiomegaly and increase in pulmonary vascularity. Discharge Plan Discharge Disposition Patient Disposition: Discharge Home Discharge Condition Condition: Good Discharge Order Discharge Orders: Discharge Order (Routine); Ordered 12/30/18 Ordered By: Sally Temple Physicians Team ED Provider: Sherlyn Celestin Primary Care Provider: Brandon Goode Attending Provider: Sally Temple Other Providers: Shakeel Dow Rxs /Orders / Referrals /Forms Prescriptions: New losartan 50 mg Tablet 50 mg PO DAILY Qty: 30 RF: 0 apixaban [Eliquis] 5 mg Tablet 5 mg PO BID Qty: 60 RF: 0 levofloxacin [Levaquin] 750 mg tablet 750 mg PO DAILY 5 Days Qty: 5 RF: 0 nystatin 100,000 unit/mL suspension 4 ml PO QID 7 Days Qty: 112 RF: 0 Continue carisoprodol [Soma] 350 mg Tablet 350 mg PO QID PRN (Reason: Acute Pain) RF: 0 ranitidine HCl 150 mg Tablet 150 mg PO BID RF: 0 fluticasone-salmeterol [Advair Diskus] 500-50 mcg/dose Blister With Device 1 inh INHALATION BID RF: 0 diltiazem HCl 240 mg Tablet Extended Release 24 Hr 360 mg PO DAILY RF: 0 omeprazole 20 mg Tablet,Delayed Release (Dr/Ec) 20 mg PO DAILY RF: 0 hydrocortisone [Cortef] 10 mg Tablet 10 mg PO BID Qty: 10 RF: 0 guaifenesin [Mucinex] 600 mg Tablet Extended Release 12hr 600 mg PO BID Qty: 10 RF: 0 Referrals: Brandon Goode MD [Primary Care Provider] - See Instructions (YOUR APPOINTMENT IS ON MONDAY, JANUARY 07, 2019 @ 10:00 A.M. ) Discharge Instructions Patient Printed Instructions: Nystatin (By mouth), Losartan (By mouth), Levofloxacin (By mouth), Apixaban (By mouth), Viral Pneumonia (DC) Post Discharge Care Plan Care Plan Goals: Discharge Care Plan Goals for Pneumonia You have been diagnosed with pneumonia. This is a serious lung infection. Most cases of pneumonia are caused by bacteria. Pneumonia most often occurs in older adults, young children, and people with chronic health problems. Directions to Meet your Goals: 1. Home care: * Take your medicine exactly as directed. Dont skip doses. Continue taking your antibiotics as until they are all gone, even if you start to feel better. This will prevent the pneumonia from coming back. * Drink at least 8 glasses of water daily, unless directed otherwise. This helps to loosen and thin secretions so that you can cough them up. * Use a cool-mist humidifier in your bedroom. Be sure to clean the humidifier daily. * Dont use medicines to suppress your cough unless your cough is dry, painful, or interferes with your sleep. Coughing up mucus is normal. You may use an expectorant if your doctor says its okay. * You can use warm compresses or a heating pad on the lowest setting to relieve chest discomfort. Use several times a day for 15-20 minutes at a time. To prevent injury to your skin, set the temperature to warm, not hot. Dont put the compress or pad directly on your skin. Make certain it has a cover or wrap it in a towel. This is to prevent skin sloan. * Get plenty of rest until your fever, shortness of breath, and chest pain go away. * Plan to get a flu shot every year. The flu is a common cause of pneumonia. Getting a flu shot every year can help prevent both the flu and pneumonia. 2. Getting the pneumococcal vaccine: * Talk with your doctor about getting the pneumococcal vaccine. Pneumococcal pneumonia is caused by bacteria that spread from person to person. It can cause minor problems, such as ear infections. But it can also turn into life- threatening illnesses of the lungs (pneumonia), the covering of the brain and spinal cord (meningitis), and the blood (bacteremia). * Make sure to ask your doctor if you should have the vaccine. Children under 2 years of age, adults over age 65, people with certain health conditions, and smokers are at the highest risk of pneumococcal disease. This vaccine can help prevent pneumococcal disease in both adults and children. 3. Follow-up care: Do Not miss your follow-up appointment. Keep up with all your appointments and yearly check ups 4. When to call your doctor: Call your doctor immediately if you have any of the following: Fever of 100.4F (38C) or higher, or as directed by your healthcare provider Mucus from the lungs (sputum) thats yellow, green, bloody, or smells bad Vomiting Any symptoms that get worse 5. Call 911: Call 911 right away if you have any of the following: Chest pain Trouble breathing Blue lips or fingernails Status ED Status: Left Department Discharge Information Discharge Date/Time: 12/30/18 11:14
[2018-12-30 09:02] VITALS: BP 184/85; PULSE 97; RESP 20; TEMP 98.4
[2018-12-30] MEDS: guaiFENesin 600 MG ER Tablet PO SCH (09:20)
[2018-12-30] MEDS: Hydrocortisone 10 MG Tablet PO SCH (09:20)
[2018-12-30] MEDS: Famotidine 20 MG Tablet PO SCH (09:20)
[2018-12-30] MEDS: dilTIAZem CD 180 MG Capsule PO SCH (09:21)
[2018-12-30] MEDS: Pantoprazole Sodium 20 MG DR Tablet PO SCH (09:21)
[2018-12-30] MEDS: Lactobacillus Acidophilus/L. Spores Tablet PO SCH (09:22)
== END 2018-12-30 11:14 | disposition home or self-care (01) | DRG 308 ==
LOC: NEPE 03:45 → NEDA 06:51 → N04 12:54
PROVIDERS: ADMIT Family Medicine; ATTEND Family Medicine
DX: I48.91 Unspecified atrial fibrillation; R60.0 Localized edema; B37.0 Candidal stomatitis; J18.9 Pneumonia, unspecified organism; Z87.01 Personal history of pneumonia (recurrent); Z77.22 Contact with and (suspected) exposure to environmental tobacco smoke (acute) (chronic); K21.9 Gastro-esophageal reflux disease without esophagitis; Z99.81 Dependence on supplemental oxygen; M62.838 Other muscle spasm; I27.20 Pulmonary hypertension, unspecified; J45.909 Unspecified asthma, uncomplicated; Z82.49 Family history of ischemic heart disease and other diseases of the circulatory system; Z88.6 Allergy status to analgesic agent; I48.0 Paroxysmal atrial fibrillation; I11.9 Hypertensive heart disease without heart failure
CPT/HCPCS: 71010; 71045; 80053; 82550; 82552; 83520; 83690; 83735; 83880; 84484; 85025; 85610; 85730; 87040; 87275; 87276; 87804; 90765; 90775; 93005; 94640; 94665; 96365; 96375; 99285; J1956; J7030